=== PATIENT | female | born 1995 | race Caucasian/White ===

== ENCOUNTER → 2017-05-27 10:24 | Outpatient (CLI) | payer OTHER, SELFPAY ==
[2017-05-27 12:02] LABS: Internal QC Validated? YES +Cl - CLEAR BKGD; Pregnancy, Urine Negative Negative
== END ==
PROVIDERS: Family Provider Family Medicine; PCP Family Medicine; Visit Provider Nurse Practitioner Family
DX: L70.0 Acne vulgaris (principal); Z79.899 Other long term (current) drug therapy
CPT/HCPCS: 81025; 96361; 96372; 96374; 96375; 99218; G0378

== ENCOUNTER → 2017-06-29 10:46 | Outpatient (CLI) | payer OTHER, SELFPAY ==
[2017-06-29 12:22] LABS: Internal QC Validated? YES +Cl - CLEAR BKGD
[2017-06-29 12:23] LABS: Pregnancy, Urine Negative Negative
== END ==
PROVIDERS: Family Provider Family Medicine; PCP Family Medicine; Visit Provider Nurse Practitioner Family
DX: L70.0 Acne vulgaris (principal); Z79.899 Other long term (current) drug therapy
CPT/HCPCS: 81025

== ENCOUNTER → 2017-08-11 14:18 | Outpatient (CLI) | payer OTHER, SELFPAY ==
--- NOTE | 2017-08-11 14:18 | DT_ITS ---
This patient was seen during an EMR downtime August 10, 2017 - August 17, 2017. This patient may have a combination of paper and electronic documentation or all paper documentation. All documentation is viewable within the e-chart portion of [facility] for each patient visit.
[2017-08-17 17:15] LABS: Internal QC Validated? YES +Cl - CLEAR BKGD; Pregnancy, Urine Negative Negative
== END ==
PROVIDERS: Family Provider Family Medicine; PCP Family Medicine; Visit Provider Physician Assistant
DX: L70.0 Acne vulgaris (principal); Z79.899 Other long term (current) drug therapy
CPT/HCPCS: 81025

== ENCOUNTER → 2017-09-15 09:54 | Outpatient (CLI) | payer OTHER, SELFPAY ==
[2017-09-15 12:06] LABS: Internal QC Validated? YES +Cl - CLEAR BKGD; Pregnancy, Urine Negative Negative
== END ==
PROVIDERS: Family Provider Family Medicine; PCP Family Medicine; Visit Provider Physician Assistant
DX: L70.0 Acne vulgaris (principal); L65.0 Telogen effluvium; Z79.899 Other long term (current) drug therapy
CPT/HCPCS: 36415; 81025

== ENCOUNTER 2018-02-17 19:43 | Emergency (ER) | payer OTHER, SELFPAY ==
[2018-02-17 19:44] VITALS: BP 148/92; PULSE 127; RESP 18; TEMP 36.8; O2SAT 96; BMI 45.5
--- NOTE | 2018-02-17 20:59 | US_ITS ---
STUDY: ABDOMINAL ULTRASOUND - RIGHT UPPER QUADRANT REASON FOR VISIT: Female, 22 years old. Upper abdominal pain TECHNIQUE: Ultrasound evaluation of the right upper quadrant was performed with real-time and static martinez-scale imaging. TECHNICAL QUALITY: Adequate. COMPARISON: None. FINDINGS: Liver: The liver measures 18.1 cm. There is increased echogenicity consistent with fatty infiltration. The bile ducts are within normal limits. There is no demonstrated mass lesion. Gallbladder: Normal distended gallbladder. The gallbladder wall measures 2 mm. There is a negative sonographic Cummings's sign. There is no pericholecystic fluid. There are no gallstones. Common Bile Duct (C.B.D.): The common bile duct measures 3 mm. Pancreas: Normal size of the head, body and tail of the pancreas. There is normal echogenicity of the pancreas. There is no demonstrated pancreatic mass or cyst. Right Kidney: Normal size of the right kidney. The right kidney measures 12.0 x 6.3 x 6.6 cm. Normal renal cortex. The right cortex measures 1.9 cm. There is no demonstrated renal mass or cyst. There is no right hydronephrosis. US/Gallbladder IMPRESSION: Fatty liver. Otherwise, normal right upper quadrant ultrasound. Electronically Signed: Shanta Tirado MD at 22:18 EST , Service support ,
[2018-02-17] MEDS: 0.9% Normal Saline 1,000 ML 1000 ML IV (21:40)
[2018-02-17] MEDS: Ondansetron 4 MG/2 ML Vial IV (21:40)
[2018-02-17] MEDS: Ketorolac 30 MG/ML Syringe IV (21:40)
[2018-02-17 21:58] LABS: Absolute Lymphocyte Count 2.23 X10^3/ul (0.83-4.51); Absolute Neutrophil Count 6.9 X10^3/uL (2.0-7.7); Basophil# 0.01 X10^3/uL; Basophil% 0.1 % (0-1); Eosinophil# 0.01 X10^3/uL; Eosinophils% 0.1 % (0-5); Hematocrit 40.7 % (37-47); Hemoglobin 13.6 g/dl (12.0-15.0); Lymphocyte # 2.23 X10^3/ul (4.0); Lymphocyte % 22.5 % (19-41); Mean Corp Hgb Conc 33.4 g/gl (32-36); Mean Corpuscular Hgb 29.1 pg (27.0-32.0); Mean Corpuscular Volume 87.2 fL (81-99); Mean Platelet Vol. 9.4 fl (6.2-12.0); Monocyte# 0.73 X10^3/uL; Monocyte% 7.4 % (0-10); Neutrophil # 6.94 X10^3/uL (2.7-7.7); Neutrophil % 69.8 % (47-70); Platelet Count 304 K/mm3 (150-450); RBC Distribution Width CV 12.6 % (11.6-14.6); RBC Distribution Width SD 39.3 fl (35.1-43.9); Red Blood Count 4.67 M/mm3 (4.2-5.4); White Blood Count 9.9 K/mm3 (4.4-11.0)
[2018-02-17 21:59] LABS: POSITIVE COUNT NO; POSITIVE DIFFERENTIAL NO; POSITIVE MORPHOLOGY NO
[2018-02-17 22:18] LABS: ALB/GLOB Ratio 0.7 RATIO (0.9-2.4); AST(SGOT) 12 U/L (15-37); Alanine Aminotransfer ALT/SGPT 24 U/L (13-56); Albumin, Serum 3.2 g/dL (3.2-5.0); Alkaline Phosphatase 60 U/L (45-117); Anion Gap 10 (5-15); BUN 10 mg/dL (7-18); BUN/Creat Ratio 10.7 RATIO (10-20); Calcium,Total 9.6 mg/dL (8.5-10.1); Chloride 106 mmol/L (98-107); Creatinine, Serum 0.94 mg/dL (0.55-1.02); EST Glomerular Filtration Rate 78 mL/min (>60); Est Glom Filt Rate - Afr Amer 94 mL/min (>60); Estimated Creatinine Clearance 93.09 ml/min; Globulin 4.4 g/dL (2.2-4.2); Glucose 84 mg/dL (74-106); Lipase 55 U/L (73-393); Potassium 3.6 mmol/L (3.5-5.1); Protein, Total 7.6 g/dL (6.4-8.2); Sodium Level 142 mmol/L (136-145)
[2018-02-17 22:19] LABS: D-Dimer Quantitative (DVT/PE) 0.59 FEU/ug/m (0.27-0.49)
[2018-02-17 22:30] LABS: Pregnancy, Serum, hCG Quali. NEGATIVE Negative (0-9 Nonpreg)
--- NOTE | 2018-02-17 22:51 | CT_ITS ---
STUDY: CTA CHEST REASON FOR EXAM: Female, 22 years old. Upper abdominal pain and elevated d-dimer. RADIATION DOSAGE (If Supplied By Facility): CTDIvol = ( 12.01 ) mGy, DLP = ( 757.55 ) mGycm TECHNIQUE: The examination was performed with the intravenous administration of 100 ml of Isovue 370 contrast material. Post-processing of the angiographic images was performed, with multiplanar reformation and 3D reconstruction. Individualized dose optimization techniques were used for this CT. COMPARISON: None. FINDINGS: Normal enhancement of the main pulmonary artery and right and left pulmonary arteries. Normal enhancement of the bilateral peripheral pulmonary arteries. There is no demonstrated pulmonary embolism. Normal thoracic aorta and visualized great vessels. There is no demonstrated aortic dissection. Normal heart and pericardium. Normal mediastinum. Normal hilar regions. Normal visualized trachea and bronchi. The lungs are well expanded. Normal pulmonary parenchyma. Normal pleura. Normal chest wall structures. Normal osseous structures. Normal visualized upper abdomen. CT/CTA Chest W/WO Contrast IMPRESSION: Normal CTA chest examination, without a demonstrated pulmonary embolism or arterial dissection. Electronically Signed: Shanta Tirado MD at 23:36 EST , Service support ,
--- NOTE | 2018-02-17 23:52 | ED.DCSUM_ITS ---
- ER Visit Summary Date of Service: 02/17/18 Chief Complaint: Abdominal pain History of Present Illness: The patient is a [address] Bocanegra. She reports that she has epigastric abdominal pain began yesterday. It is a continuous waxing and waning pain. She describes it as sharp. 7 out of 10 worsened through 10 currently. Is worsened by pushing on it or deep breaths. Is relieved by nothing. She denies any nausea or vomiting. No diarrhea. Last bowel was today. No melena hematochezia. No dysuria frequency. She is on control pills. She does have a family history of gallstones. No personal family history of DVT. No recent travel. No ankle swelling or calf pain. No fatty or spicy food intolerance. Physical Examination: Vitals: 98.2, 148/92, 127, 18, 96% room air which is not hypoxic. General: Well-nourished and well-developed. Head: Normocephalic atraumatic. Neck: Supple, no lymphadenopathy. No JVD. Nontender. Cardiovascular: Regular rate and rhythm. No murmurs. Respiratory: No respiratory distress. Clear to auscultation bilaterally. Abdominal: Soft, moderate epigastric tenderness palpation. No Cummings sign. Nondistended, normal bowel sounds. No guarding, rebound, or peritoneal signs. Back: Nontender. Extremities: Nontender, no edema. Skin: Normal color, no rash. Neurologic: Alert and oriented ?3. Cranial nerves II through XII are intact. Normal strength and sensation. Psych: Normal affect. Test Results: CBC is normal. Chem-7 is normal. LFTs marked for globulin 4.4 and AST of 12. Lipase is normal. test is negative. D-dimer is positive. Quadrant ultrasound shows normal gallbladder with a 2 mm well. No Cummings sign. No pericholecystic fluid. No gallstones. Common bile duct is [address] the chest with IV contrast shows no PE or acute disease. Emergency Department Course and Treatment: Patient was treated Toradol and Zofran IV. She is resting comfortably. She was given Pepcid p.o. Treatment Plan: Patient be discharged on Pepcid. Instructed to follow-up her primary care physician 1 week if not improving. Return to the emergency department for any worsening symptoms. Disposition: To home in improved and stable condition. Impression: 1. Abdominal pain, uncertain cause. This note was generated with [employer] dictation software. It may contain incorrect words, spelling, and punctuation that were not noted in review of the chart prior to signing ED Disposition - Plan for ED Patient: Disposition: Home or Assisted Living Chief Complaint: Abd Pain Instructions: ED Abdominal Pain Unkn Cause Prescriptions: Ranitidine [Zantac] 300 mg PO DAILY #30 tablet Referrals: Dimitris Bocanegra [Primary Care Provider] - 3-5 Days if not improving
[2018-02-18] MEDS: Famotidine 20 MG Tablet 40 MG PO (00:13)
[2018-02-18 00:15] VITALS: RESP 18
--- OUTSIDE RECORDS SUMMARY | 2018-04-05 22:44 | XMS RPT_ITS ---
:1995 Author Organization OHIP Care Team Providers Name Role Phone Dimitris Samano Primary Care Unavailable Gerson Herrera Attending Unavailable Nayely Callejas LEAD SOFTWARE DEVELOPER-C Attending Unavailable Nayely Callejas LEAD SOFTWARE DEVELOPER-C Referring Unavailable Dimitris Samano Primary Care Unavailable Nayely Callejas LEAD SOFTWARE DEVELOPER-C Attending Unavailable Nayely Callejas LEAD SOFTWARE DEVELOPER-C Referring Unavailable Dimitris Samano Primary Care Unavailable Tanya Green Attending Unavailable Tanya Green Referring Unavailable Dimitris Samano Primary Care Unavailable Tanya Green Attending Unavailable Tanya Green Referring Unavailable Dimitris Samano Primary Care Unavailable BLAKE KERN Attending Unavailable ESCOBAR FRANCE Referring Unavailable DALJIT, DIMITRIS CADE Attending Unavailable TESTRAKE EVELIN Attending Unavailable DALJIT, DIMITRIS PROCTORS Attending Unavailable DALJIT, DIMITRIS HUMA Referring Unavailable DALJIT, DIMITRIS HUMA Referring Unavailable MONISurekha BLACKROSEANN MARRERO Attending Unavailable DALJIT, DIMITRIS CROWENABAS Attending Unavailable DALJIT, DIMITRIS PROCTORS Attending Unavailable DALJIT, BRODERICK Irby Attending Unavailable DALJIT, DIMITRIS HUMA Referring Unavailable BEKAHBENITA Referring Unavailable BekahBenita Referring Unavailable DALJIT, DIMITRIS Primary Care Unavailable PROBLEMS PROBLEMS DATE TYPE CONDITION / CODE ATTENDING STATUS SOURCE 02/23/2018 Active Epigastric pain / BRODERICK SAMANO Active [facility] R10.13(ICD-10) Main [place] Repository 12/16/2017 Active Attention-deficit DIMITRIS SAMANO Active [facility] hyperactivity HUMA Main [place] disorder, Repository predominantly inattentive type / F90.0(ICD-10) 09/15/2017 Unknown L70.0 - Acne GreenTanya Active [facility] L70.0(ICD-10) Hospital Repository 07/14/2017 Active Encounter for NA Active [facility] therapeutic drug [facility] level monitoring / Repository Z51.81(ICD-10) 07/07/2017 Active Unknown / TESTRAKE, Active [facility] UNK(Unknown) EVELIN [facility] Repository PROCEDURES PROCEDURES No Procedure Records FoundRESULTS RESULTS PROGRESS Observed: 02/23/2018 Status: COMPLETED Source: [place] 9:03 AM [facility] RE[facility] HNO ID: [id number] Author: Broderick Samano Service: (none) Author Type: Physician Type: Progress Notes Filed: 02/23/2018 9:12 AM Note Text: This note was created using NoteWriter. Subjective Tata Sage is a 22 year old female. The history is provided by the patient. Abdominal Pain This is a new problem. The current episode started more than 1 week ago. The problem occurs every several days. The pain is located in the epigastric region. The quality of the pain is sharp. The pain is at a severity of 3/10. The pain is moderate. Associated symptoms include nausea. Associated symptoms comments: Resolved, epigastric pain, has h/o naproxen use. The symptoms are aggravated by NSAIDs. The symptoms are relieved by H2 blockers. taking zantac daily, much better. Review of Systems Constitutional: Negative. HENT: Negative. Gastrointestinal: Positive for abdominal pain and nausea. Objective BP 126/82 Pulse 80 Temp 36.7 ?C (98.1 ?F) (Tympanic) Ht 172.7 cm (5' 8) Wt 135.6 kg (299 lb) BMI 45.46 kg/m? Physical Exam Constitutional: She appears well-developed and well-nourished. HENT: Head: Normocephalic and atraumatic. Cardiovascular: Normal rate and regular rhythm. Pulmonary/Chest: Effort normal and breath sounds normal. Abdominal: There is tenderness in the epigastric area. Skin: Skin is warm and dry. Nursing note and vitals reviewed. Assessment and Plan ASSESSMENT/PLAN: 1. Epigastric abdominal pain - ICD9: 789.06, ICD10: R10.13 - Begin treatment with Zantac 150 mg BID - Reassured, resolving Broderick Samano MD CNOV Observed: 02/23/2018 Status: COMPLETED Source: [place] 9:00 AM [facility] REPOSITORY Office Visit (STFLF) TATA SAGE ([id number]) 1995 F Date Time Provider Department 02/23/18 9:00 AM BRODERICK SAMANO STFLF During your visit today, we recorded the following information about you: Temperature Pulse Blood pressure Weight 98.1 degrees 80/minute 126/82 135.6 kg Height 1.727 m Broderick Samano MD 02/23/2018 9:12 AM Signed This note was created using NoteWriter. Subjective Tata Sage is a 22 year old female. The history is provided by the patient. Abdominal Pain This is a new problem. The current episode started more than 1 week ago. The problem occurs every several days. The pain is located in the epigastric region. The quality of the pain is sharp. The pain is at a severity of 3/10. The pain is moderate. Associated symptoms include nausea. Associated symptoms comments: Resolved, epigastric pain, has h/o naproxen use. The symptoms are aggravated by NSAIDs. The symptoms are relieved by H2 blockers. taking zantac daily, much better. Review of Systems Constitutional: Negative. HENT: Negative. Gastrointestinal: Positive for abdominal pain and nausea. Objective BP 126/82 Pulse 80 Temp 36.7 ?C (98.1 ?F) (Tympanic) Ht 172.7 cm (5' 8) Wt 135.6 kg (299 lb) BMI 45.46 kg/m? Physical Exam Constitutional: She appears well-developed and well-nourished. HENT: Head: Normocephalic and atraumatic. Cardiovascular: Normal rate and regular rhythm. Pulmonary/Chest: Effort normal and breath sounds normal. Abdominal: There is tenderness in the epigastric area. Skin: Skin is warm and dry. Nursing note and vitals reviewed. Assessment and Plan ASSESSMENT/PLAN: 1. Epigastric abdominal pain - ICD9: 789.06, ICD10: R10.13 - Begin treatment with Zantac 150 mg BID - Reassured, resolving Broderick Samano MD Referring Provider: DIMITRIS SAMANO [[id number]] Allergies As of Date: 02/23/2018 Noted Allergy Reaction Artesia flies [Other] 08/24/2007 7 - Swelling DUST 04/30/2005 Comments: Sneezing and stuffy nose MOSQUITOS 09/07/2007 7 - Swelling POLLEN 04/30/2005 Comments: Sneezing and stuffy nose Date Reviewed: 02/23/2018 Reviewed by: Broderick Samano - Fully Assessed Reason for Visit: Abdominal Pain [1] Cmt: er follow up [place] Primary Visit Diagnosis:Epigastric abdominal pain [R10.13] Prescriptions as of 02/23/2018 Sig: ARIPIPRAZOLE 5 MG TABLET Take 1 tablet by mouth once d* ATOMOXETINE 40 MG CAPSULE Take 1 capsule by mouth once * ATOMOXETINE 80 MG CAPSULE Take 1 capsule by mouth once * BUPROPION XL 150 MG TAB Take 1 tablet by mouth once d* DOXYCYCLINE MONOHYDRATE 100 M* Take 1 capsule by mouth. DROSPIRENONE 3 MG-ETHINYL EST* Take 1 tablet by mouth once d* HYDROXYZINE HCL 25 MG TABLET Take 1 tablet by mouth daily * MULTIVITAMIN CHEWABLE TABLET Take one(1) tablet daily. NALTREXONE 50 MG TABLET Take 1 tablet by mouth once d* POLYETHYLENE GLYCOL 3350 17 G* Take 17 g by mouth once daily. AFLURIA QUAD 2937-2519 (PF) 6* BUPROPION XL 300 MG 24 HR TAB Take 300 mg by mouth once saroj* CLARAVIS 40 MG CAPSULE TAKE 2 CAPSULES BY MOUTH EDILBERTO* FLORAJEN3 ORAL Take by mouth once daily. NAPROXEN ORAL Take by mouth. SPIRONOLACTONE 50 MG TABLET Take 50 mg by mouth once edilberto* Problem List As Of Date 02/23/2018 Noted Resolved Ingrowing nail [L60.0] INVALID FOR*07/23/2011 Cellulitis and abscess of toe, unspecified [L03*INVALID FOR*07/23/2011 Acne [L70.9] INVALID FOR* Obesity, Class III, BMI >= 40 E66.01 [E66.01] INVALID FOR* Bipolar 1 disorder (HCC) [F31.9] INVALID FOR* Body mass index (BMI) 45.0-49.9, adult (HCC) [Z*INVALID FOR* Moderate episode of recurrent major depressive *INVALID FOR* Medications Discontinued During This Encounter LANSOPRAZOLE (PREVACID ORAL) 02/23/2018 Class: Historical Med Route: ORAL Sig: Take by mouth. Disc: Course of therapy completed Disposition: Return if symptoms worsen or fail to improve. Follow-up and Disposition History Recorded Encounter Status:Closed by BRODERICK SAMANO MD on 02/23/18 EMERGENCY DEPARTMENT Observed: 02/18/2018 Status: F Source: [place] SUMMARY 1:04 AM [facility] REPOSITORY [facility] Medical Records Department [address] [place] [address] Emergency Department Summary 02/17/18 2351 MR#: [id number] Acct: [id number] Name: TATA SAGE Rep #: [id number] : 1995 22 From: Gerson Herrera MD PCP: Dimitris Samano Status: DEP ER - ER Visit Summary Date of Service: 02/17/18 Chief Complaint: Abdominal pain History of Present Illness: The patient is a [address] Samano. She reports that she has epigastric abdominal pain began yesterday. It is a continuous waxing and waning pain. She describes it as sharp. 7 out of 10 worsened through 10 currently. Is worsened by pushing on it or deep breaths. Is relieved by nothing. She denies any nausea or vomiting. No diarrhea. Last bowel was today. No melena hematochezia. No dysuria frequency. She is on control pills. She does have a family history of gallstones. No personal family history of DVT. No recent travel. No ankle swelling or calf pain. No fatty or spicy food intolerance. Physical Examination: Vitals: 98.2, 148/92, 127, 18, 96% room air which is not hypoxic. General: Well-nourished and well-developed. Head: Normocephalic atraumatic. Neck: Supple, no lymphadenopathy. No JVD. Nontender. Cardiovascular: Regular rate and rhythm. No murmurs. Respiratory: No respiratory distress. Clear to auscultation bilaterally. Abdominal: Soft, moderate epigastric tenderness palpation. No Cummings sign. Nondistended, normal bowel sounds. No guarding, rebound, or peritoneal signs. Back: Nontender. Extremities: Nontender, no edema. Skin: Normal color, no rash. Neurologic: Alert and oriented 3. Cranial nerves II through XII are intact. Normal strength and sensation. Psych: Normal affect. Test Results: CBC is normal. Chem-7 is normal. LFTs marked for globulin 4.4 and AST of 12. Lipase is normal. test is negative. D-dimer is positive. Quadrant ultrasound shows normal gallbladder with a 2 mm well. No Cummings sign. No pericholecystic fluid. No gallstones. Common bile duct is [address] the chest with IV contrast shows no PE or acute disease. Emergency Department Course and Treatment: Patient was treated Toradol and Zofran IV. She is resting comfortably. She was given Pepcid p.o. Treatment Plan: Patient be discharged on Pepcid. Instructed to follow-up her primary care physician 1 week if not improving. Return to the emergency department for any worsening symptoms. Disposition: To home in improved and stable condition. Impression: 1. Abdominal pain, uncertain cause. This note was generated with Kickstarteration software. It may contain incorrect words, spelling, and punctuation that were not noted in review of the chart prior to signing ED Disposition - Plan for ED Patient: Disposition: Home or Assisted Living Chief Complaint: Abd Pain Instructions: ED Abdominal Pain Unkn Cause Prescriptions: Ranitidine [Zantac] 300 mg PO DAILY #30 tablet Referrals: Dimitris Samano [Primary Care Provider] - 3-5 Days if not improving What to do if you have Problems For any increased pain, shortness of breath, bleeding, nausea or vomiting, chest pain, or any unexpected problems, contact your Primary Care Provider. Call [facility] ([phone]) or report to the closest Emergency Room. Call 911 if necessary. 02/18/18 0104 <Electronically signed by Gerson Herrera MD> Date Gerson Herrera MD Cosigner Signature (If Indicated): Date CC: Dimitris Samano CTA CHEST W/WO Observed: 02/17/2018 Status: F Source: [place] CONTRAST 10:51 PM [facility] REPOSITORY [facility] Imaging Services [address] [place] [id number] CTA Chest W/WO Contrast MR#: [id number] Acct: [id number] Name: TATA SAGE Rep #: [id number] : 1995 F 22 From: Shanta Tirado MD PCP: Dimitris Samano Status: REG ER Study: CTA Chest W/WO Contrast Date of Exam: 02/17/18 Exam# [id number] Ordering Dr: Gerson Herrera MD STUDY: CTA CHEST REASON FOR EXAM: Female, 22 years old. Upper abdominal pain and elevated d-dimer. RADIATION DOSAGE (If Supplied By Facility): CTDIvol = ( 12.01 ) mGy, DLP = ( 757.55 ) mGycm TECHNIQUE: The examination was performed with the intravenous administration of 100 ml of Isovue 370 contrast material. Post-processing of the angiographic images was performed, with multiplanar reformation and 3D reconstruction. Individualized dose optimization techniques were used for this CT. COMPARISON: None. FINDINGS: Normal enhancement of the main pulmonary artery and right and left pulmonary arteries. Normal enhancement of the bilateral peripheral pulmonary arteries. There is no demonstrated pulmonary embolism. Normal thoracic aorta and visualized great vessels. There is no demonstrated aortic dissection. Normal heart and pericardium. Normal mediastinum. Normal hilar regions. Normal visualized trachea and bronchi. The lungs are well expanded. Normal pulmonary parenchyma. Normal pleura. Normal chest wall structures. Normal osseous structures. Normal visualized upper abdomen. CT/CTA Chest W/WO Contrast IMPRESSION: Normal CTA chest examination, without a demonstrated pulmonary embolism or arterial dissection. Electronically Signed: Shanta Tirado MD at 23:36 EST , Service support , CC: Dimitris Samano; Gerson Herrera MD Manager Personnel Selection: Signed CBC W/DIFF, AUTOMATED Collected: 02/17/2018 Status: F Source: [place] 9:43 PM [facility] REPOSITORY TYPE CODE TESTS RESULT OUT OF RANGE REFERENCE UNITS LAB L100.1000 4.4-11.0 K/mm3 Normal WBC 9.9 LAB L100.1200 4.2-5.4 M/mm3 Normal RBC 4.67 LAB L100.1300 12.0-15.0 g/dl Normal HGB 13.6 LAB L100.1400 37-47 % Normal HCT 40.7 LAB L100.1500 81-99 fL Normal MCV 87.2 LAB L100.1600 27.0-32.0 pg Normal MCH 29.1 LAB L100.1700 32-36 g/gl Normal MCHC 33.4 LAB L100.1810 11.6-14.6 % Normal RDW CV 12.6 LAB L100.1820 35.1-43.9 fl Normal RDW SD 39.3 LAB L100.1900 150-450 K/mm3 Normal PLT 304 LAB L100.2000 6.2-12.0 fl Normal MPV 9.4 LAB L100.2100 47-70 % Normal NEUT% 69.8 LAB L100.2200 19-41 % Normal LY% 22.5 LAB L100.2300 0-10 % Normal MONO% 7.4 LAB L100.2400 0-5 % Normal EO% 0.1 LAB L100.2500 0-1 % Normal BASO% 0.1 LAB L100.2550 0.0-0.9 % Normal IM GRAN % 0.100 Result Comment: IG% - Immature Granulocytes (promyelocytes, myelocytes and metamyelocytes) > 1% indicates that a LEFT SHIFT is Present. LAB L100.2620 2.0-7.7 X10 3/uL Normal Absolute Neut 6.9 LAB L100.2720 0.83-4.51 X10 3/ul Normal Absolute Lymph 2.23 Performed By: #### L100.0100 #### [facility] [address] [place], [address] COMPREHENSIVE METABOLIC Collected: 02/17/2018 Status: F Source: [facility] 9:43 PM [facility] REPOSITORY TYPE CODE TESTS RESULT OUT OF RANGE REFERENCE UNITS LAB L501.0100 74-106 mg/dL Normal GLU 84 Result Comment: Please note revised GLUCOSE reference range effective 2017. LAB L501.1000 7-18 mg/dL Normal BUN 10 LAB L501.1100 0.55-1.02 mg/dL Normal CREAT,SERUM 0.94 Result Comment: The validity of the calculated GFR AND GFRAA in patients over 70 years has not been determined. Clinical correlation is essential. LAB L501.1110 >60 mL/min Normal EST GFR 78 Result Comment: Non- GFR Calc LAB L501.1115 >60 mL/min Normal EST GFR - AA 94 Result Comment: GFR Calc LAB L501.1255 ml/min Normal Estimated CRCL 93.09 LAB L501.1300 10-20 RATIO Normal BUN/CRE 10.7 LAB L501.1500 6.4-8. g/dL Normal 2 T PROT 7.6 LAB L501.1800 3.2-5. g/dL Normal 0 ALB 3.2 LAB L501.1950 2.2-4. g/dL High 2 GLOB 4.4 LAB L501.2000 0.9-2. RATIO Low 4 A/G 0.7 LAB L501.2200 8.5-10 mg/dL Normal .1 CA 9.6 LAB L501.4100 15-37 U/L Low AST 12 LAB L501.4305 45-117 U/L Normal ALK P 60 LAB L501.4405 13-56 U/L Normal ALT 24 LAB L501.4600 0.20-1 mg/dL Normal .00 T BILI 0.50 LAB L501.5300 136-14 mmol/L Normal 5 NA 142 LAB L501.5600 3.5-5. mmol/L Normal 1 K 3.6 LAB L501.5900 98-107 mmol/L Normal CL 106 LAB L501.6100 21.0-3 mmol/L Normal 2.0 CO2 26.0 LAB L501.6200 5-15 Normal GAP 10 Performed By: #### L500.4050, L501.2450 #### [facility] [address], [place], [id number] LIPASE Collected: 02/17/2018 Status: F Source: [place] 9:43 PM [facility] REPOSITORY TYPE CODE TESTS RESULT OUT OF REFERENCE UNITS RANGE LAB L501.2450 73-393 U/L Low LIPASE 55 Performed By: #### L500.4050, L501.2450 #### [facility] [address] [place], [address] D-DIMER QUANTITATIVE Collected: 02/17/2018 Status: F Source: [place] (DVT/PE) 9:43 PM [facility] REPOSITORY TYPE CODE TESTS RESULT OUT OF RANGE REFERENCE UNITS LAB L300.8000 0.27-0.49 FEU/ug/m High alert D-DIMER 0.59 QUANT Result Comment: D-Dimer ELEVATED (>0.49): Additional studies and clinical assessments are indicated to conclude diagnosis of: Deep Vein Thrombosis (DVT) or Pulmonary Embolism (PE) CRITICAL VALUE VERIFIED. CALLED TO CRAIG 02/17/18 2348 Saritha Garcia. RESULTS READ BACK BY SAME . Performed By: #### L300.8000 #### [facility] [address] [place], [address] ,SERUM,HCG QUALI. Collected: Status: F Source: [place] 02/17/2018 9:43 PM [facility] REPOSITORY TYPE CODE TESTS RESULT OUT OF REFERENCE UNITS RANGE LAB L700.6700 =>Qualitative mIU/mL Normal HCG Qual < 1 triggr LAB L700.7000 0-9 Nonpreg Negative Normal HCGSQUAL NEGATIVE Performed By: #### L700.6800 #### [facility] [address] [place], [address] GALLBLADDER Observed: 02/17/2018 Status: F Source: [place] 9:00 PM [facility] REPOSITORY [facility] Imaging Services [address] [place] [address] Gallbladder MR#: [id number] Acct: [id number] Name: TATA SAGE Rep #: [id number] : 1995 F 22 From: Shanta Tirado MD PCP: Dimitris Samano Status: REG ER Study: Gallbladder Date of Exam: 02/17/18 Exam# [id number] Ordering Dr: Gerson Herrera MD STUDY: ABDOMINAL ULTRASOUND - RIGHT UPPER QUADRANT REASON FOR VISIT: Female, 22 years old. Upper abdominal pain TECHNIQUE: Ultrasound evaluation of the right upper quadrant was performed with real-time and static martinez-scale imaging. TECHNICAL QUALITY: Adequate. COMPARISON: None. FINDINGS: Liver: The liver measures 18.1 cm. There is increased echogenicity consistent with fatty infiltration. The bile ducts are within normal limits. There is no demonstrated mass lesion. Gallbladder: Normal distended gallbladder. The gallbladder wall measures 2 mm. There is a negative sonographic Cummings's sign. There is no pericholecystic fluid. There are no gallstones. Common Bile Duct (C.B.D.): The common bile duct measures 3 mm. Pancreas: Normal size of the head, body and tail of the pancreas. There is normal echogenicity of the pancreas. There is no demonstrated pancreatic mass or cyst. Right Kidney: Normal size of the right kidney. The right kidney measures 12.0 x 6.3 x 6.6 cm. Normal renal cortex. The right cortex measures 1.9 cm. There is no demonstrated renal mass or cyst. There is no right hydronephrosis. US/Gallbladder IMPRESSION: Fatty liver. Otherwise, normal right upper quadrant ultrasound. Electronically Signed: Shanta Tirado MD at 22:18 EST , Service support , CC: Dimitris Samano; Gerson Herrera MD Manager Personnel Selection: Signed PROGRESS Observed: 12/16/2017 Status: COMPLETED Source: [place] 9:00 AM [facility] REPOSITORY O ID: [id number] Author: Dimitris Samano Service: (none) Author Type: Physician Type: Progress Notes Filed: 12/16/2017 9:03 AM Note Text: Tata Sage is a 22 year old female known to our practice. Patient presents with: Behavioral Problem: patient states she is here to follow up from starting [place]. Pt is doing well on medication, able to focus, able to read and study. Denies any side effects. Past Medical, Surgical, Family and Social Histories reviewed and updated today in the History tab of [facility]. Current Medications and allergies reviewed. ACTIVE PROBLEM LIST Acne Obesity, Class III, BMI >= 40 E66.01 Bipolar 1 Disorder (Hcc) Body Mass Index (Bmi) 45.0-49.9, Adult (Hcc) Moderate Episode of Recurrent Major Depressive Disorder (Hcc) ALLERGIES: Artesia Flies [Other]; Dust; Mosquitos; Pollen Current Outpatient Prescriptions: buPROPion XL (WELLBUTRIN XL) 150 mg 24 hr tablet Take 1 tablet by mouth once daily. hydrOXYzine HCl (ATARAX) 25 mg tablet Take 1 tablet by mouth daily at bedtime. naltrexone (TREXAN) 50 mg tablet Take 1 tablet by mouth once daily. ARIPiprazole (ABILIFY) 5 mg tablet Take 1 tablet by mouth once daily. atomoxetine (STRATTERA) 40 mg capsule Take 1 capsule by mouth once daily. 1 po qd X 3 days then 2 po qd Drospirenone-Ethinyl Estradiol (NISREEN, 28,) 3-0.02 mg per tablet Take 1 tablet by mouth once daily. L ACIDOPHIL/B LACTIS/B LONGUM (FLORAJEN3 ORAL) Take by mouth once daily. polyethylene glycol 3350 (MIRALAX, GLYCOLAX) 17 gram/dose powder Take 17 g by mouth once daily. LANSOPRAZOLE (PREVACID ORAL) Take by mouth. MULTIVITAMINS CHEWABLE TAB Take one(1) tablet daily. doxycycline monohydrate (MONODOX) 100 mg capsule Take 1 capsule by mouth. spironolactone (ALDACTONE) 50 mg tablet Take 50 mg by mouth once daily. CLARAVIS 40 mg capsule TAKE 2 CAPSULES BY MOUTH DAILY with a fatty meal AFLURIA QUAD [id number], PF, 60 mcg/0.5 mL syrg NAPROXEN ORAL Take by mouth. buPROPion XL (WELLBUTRIN XL) 300 mg 24 hr tablet Take 300 mg by mouth once daily. No current facility-administered medications for this visit. REVIEW OF SYSTEMS GENERAL: No weight loss, malaise or fevers RESPIRATORY: Negative for cough, hemoptysis, wheezing, COPD, dyspnea or shortness of breath CARDIOVASCULAR: Negative for chest pain, leg swelling, hypertension, CHF or palpitations GI: No nausea, vomiting, or diarrhea PHYSICAL EXAMINATION: BP 118/94 Pulse 92 Temp 36.5 ?C (97.7 ?F) Ht 172.7 cm (5' 8) Wt 133.4 kg (294 lb) BMI 44.70 kg/m? PHYSICAL EXAMINATION: General appearance: Well appearing, alert, in no acute distress, well-hydrated, well nourished. Lungs: Lungs clear to auscultation. No wheezing, rhonchi, rales Heart: RRR without murmur, gallop, or rubs. No ectopy Extremities: No deformities, edema, skin discoloration, clubbing or cyanosis. Good capillary refill. Abdomen: Normal abdominal exam, Abdomen soft, non-tender. Bowel sounds normal. No masses, organomegaly Neuro: Gait normal. Reflexes normal and symmetric. Sensation grossly intact. Psychiatric: Patien has a normal mood and affect. Patient's speech is normal and behavior is normal. Judgment and thought content normal. Patient is not actively hallucinating. Cognition and memory are normal. Patient expresses no homicidal and no suicidal ideation. ASSESSMENT/PLAN: 1. Attention deficit hyperactivity disorder (ADHD), predominantly inattentive type - ICD9: 314.00, ICD10: F90.0 [facility] Dimitris Samano MD CNOV Observed: 12/16/2017 Status: COMPLETED Source: [place] 9:00 AM [facility] REPOSITORY Office Visit (STFLF) TEREZATATA Underwood ([id number]) 1995 F Date Time Provider Department 12/16/17 9:00 AM DIMITRIS SAMANO STFLF During your visit today, we recorded the following information about you: Temperature Pulse Blood pressure Weight 97.7 degrees 92/minute 118/94 133.4 kg Height 1.727 m Dimitris Samano MD 12/16/2017 9:03 AM Signed Tata Underwood Carmen is a 22 year old female known to our practice. Patient presents with: Behavioral Problem: patient states she is here to follow up from starting [facility]. Pt is doing well on medication, able to focus, able to read and study. Denies any side effects. Past Medical, Surgical, Family and Social Histories reviewed and updated today in the History tab of [facility]. Current Medications and allergies reviewed. ACTIVE PROBLEM LIST Acne Obesity, Class III, BMI >= 40 E66.01 Bipolar 1 Disorder (Hcc) Body Mass Index (Bmi) 45.0-49.9, Adult (Hcc) Moderate Episode of Recurrent Major Depressive Disorder (Hcc) ALLERGIES: Artesia Flies [Other]; Dust; Mosquitos; Pollen Current Outpatient Prescriptions: buPROPion XL (WELLBUTRIN XL) 150 mg 24 hr tablet Take 1 tablet by mouth once daily. hydrOXYzine HCl (ATARAX) 25 mg tablet Take 1 tablet by mouth daily at bedtime. naltrexone (TREXAN) 50 mg tablet Take 1 tablet by mouth once daily. ARIPiprazole (ABILIFY) 5 mg tablet Take 1 tablet by mouth once daily. atomoxetine (STRATTERA) 40 mg capsule Take 1 capsule by mouth once daily. 1 po qd X 3 days then 2 po qd Drospirenone-Ethinyl Estradiol (NISREEN, 28,) 3-0.02 mg per tablet Take 1 tablet by mouth once daily. L ACIDOPHIL/B LACTIS/B LONGUM (FLORAJEN3 ORAL) Take by mouth once daily. polyethylene glycol 3350 (MIRALAX, GLYCOLAX) 17 gram/dose powder Take 17 g by mouth once daily. LANSOPRAZOLE (PREVACID ORAL) Take by mouth. MULTIVITAMINS CHEWABLE TAB Take one(1) tablet daily. doxycycline monohydrate (MONODOX) 100 mg capsule Take 1 capsule by mouth. spironolactone (ALDACTONE) 50 mg tablet Take 50 mg by mouth once daily. CLARAVIS 40 mg capsule TAKE 2 CAPSULES BY MOUTH DAILY with a fatty meal AFLURIA QUAD [id number], PF, 60 mcg/0.5 mL syrg NAPROXEN ORAL Take by mouth. buPROPion XL (WELLBUTRIN XL) 300 mg 24 hr tablet Take 300 mg by mouth once daily. No current facility-administered medications for this visit. REVIEW OF SYSTEMS GENERAL: No weight loss, malaise or fevers RESPIRATORY: Negative for cough, hemoptysis, wheezing, COPD, dyspnea or shortness of breath CARDIOVASCULAR: Negative for chest pain, leg swelling, hypertension, CHF or palpitations GI: No nausea, vomiting, or diarrhea PHYSICAL EXAMINATION: BP 118/94 Pulse 92 Temp 36.5 ?C (97.7 ?F) Ht 172.7 cm (5' 8) Wt 133.4 kg (294 lb) BMI 44.70 kg/m? PHYSICAL EXAMINATION: General appearance: Well appearing, alert, in no acute distress, well-hydrated, well nourished. Lungs: Lungs clear to auscultation. No wheezing, rhonchi, rales Heart: RRR without murmur, gallop, or rubs. No ectopy Extremities: No deformities, edema, skin discoloration, clubbing or cyanosis. Good capillary refill. Abdomen: Normal abdominal exam, Abdomen soft, non-tender. Bowel sounds normal. No masses, organomegaly Neuro: Gait normal. Reflexes normal and symmetric. Sensation grossly intact. Psychiatric: Patien has a normal mood and affect. Patient's speech is normal and behavior is normal. Judgment and thought content normal. Patient is not actively hallucinating. Cognition and memory are normal. Patient expresses no homicidal and no suicidal ideation. ASSESSMENT/PLAN: 1. Attention deficit hyperactivity disorder (ADHD), predominantly inattentive type - ICD9: 314.00, ICD10: F90.0 Cont meds Dimitris Samano MD Referring Provider: SELF [200] Allergies As of Date: 12/16/2017 Noted Allergy Reaction Artesia flies [Other] 08/24/2007 7 - Swelling DUST 04/30/2005 Comments: Sneezing and stuffy nose MOSQUITOS 09/07/2007 7 - Swelling POLLEN 04/30/2005 Comments: Sneezing and stuffy nose Date Reviewed: 12/16/2017 Reviewed by: Dimitris Samano - Fully Assessed Reason for Visit: Behavioral Problem [13] Cmt: patient states she is here to follow up from starting Strattera. Primary Visit Diagnosis:Attention deficit hyperactivity disorder (ADHD), predominantly inattentive type [F90.0] Order(s):Atomoxetine (STRATTERA) 80 mg capsuleTake 1 capsule by mouth once daily.Disp: 30 capsuleRfl: 5 Prescriptions as of 12/16/2017 Sig: BUPROPION XL 150 MG TAB Take 1 tablet by mouth once d* HYDROXYZINE HCL 25 MG TABLET Take 1 tablet by mouth daily * NALTREXONE 50 MG TABLET Take 1 tablet by mouth once d* ARIPIPRAZOLE 5 MG TABLET Take 1 tablet by mouth once d* ATOMOXETINE 40 MG CAPSULE Take 1 capsule by mouth once * DROSPIRENONE 3 MG-ETHINYL EST* Take 1 tablet by mouth once d* FLORAJEN3 ORAL Take by mouth once daily. POLYETHYLENE GLYCOL 3350 17 G* Take 17 g by mouth once daily. PREVACID ORAL Take by mouth. MULTIVITAMIN CHEWABLE TABLET Take one(1) tablet daily. DOXYCYCLINE MONOHYDRATE 100 M* Take 1 capsule by mouth. SPIRONOLACTONE 50 MG TABLET Take 50 mg by mouth once edilberto* ATOMOXETINE 80 MG CAPSULE Take 1 capsule by mouth once * CLARAVIS 40 MG CAPSULE TAKE 2 CAPSULES BY MOUTH EDILBERTO* AFLURIA QUAD [id number] (PF) 6* NAPROXEN ORAL Take by mouth. BUPROPION XL 300 MG 24 HR TAB Take 300 mg by mouth once saroj* Problem List As Of Date 12/16/2017 Noted Resolved Ingrowing nail [L60.0] INVALID FOR*07/23/2011 Cellulitis and abscess of toe, unspecified [L03*INVALID FOR*07/23/2011 Acne [L70.9] INVALID FOR* Obesity, Class III, BMI >= 40 E66.01 [E66.01] INVALID FOR* Bipolar 1 disorder (HCC) [F31.9] INVALID FOR* Body mass index (BMI) 45.0-49.9, adult (HCC) [Z*INVALID FOR* Moderate episode of recurrent major depressive *INVALID FOR* Prescriptions ordered this encounter Disp Refills Start End ATOMOXETINE 80 MG CAPSULE 30 c* 5 12/16/2017 06/14/2018 Route: ORAL Sig: Take 1 capsule by mouth once daily. Encounter Status:Closed by DIMITRIS SAMANO MD on 12/16/17 [facility] Observed: 11/13/2017 Status: COMPLETED Source: [place] 12:00 AM [facility] REPOSITORY Telephone (STFLF) TATA SAGE ([id number]) 1995 F Date Time Provider Department 11/13/17 DIMITRIS SAMANO [facility] During your visit today, we recorded the following information about you: Tosin APONTE 11/13/2017 8:08 AM Signed Looks like to Joie did not go through to the pharmacy can we resend this for the patient please advise. Dimitris Samano MD 11/13/2017 8:33 AM Signed Working on PA now, message went through epic Tosin Wheatley 11/13/2017 11:10 AM Signed 11/13 [facility] [place] Shruti Quiñones Ma 11/23/2017 11:21 AM Signed Prior authorization approved for joie. Pharmacy contacted. Allergies As of Date: 11/13/2017 Noted Allergy Reaction Artesia flies [Other] 08/24/2007 7 - Swelling DUST 04/30/2005 Comments: Sneezing and stuffy nose MOSQUITOS 09/07/2007 7 - Swelling POLLEN 04/30/2005 Comments: Sneezing and stuffy nose Date Reviewed: 11/12/2017 Reviewed by: Dimitris Samano - Fully Assessed Reason for Visit: Medication Problem [509] Prescriptions as of 11/13/2017 Sig: LORAZEPAM 1 MG TABLET Take 1 tablet by mouth every * BUPROPION XL 150 MG TAB Take 1 tablet by mouth once d* HYDROXYZINE HCL 25 MG TABLET Take 1 tablet by mouth daily * NALTREXONE 50 MG TABLET Take 1 tablet by mouth once d* ARIPIPRAZOLE 5 MG TABLET Take 1 tablet by mouth once d* ATOMOXETINE 40 MG CAPSULE Take 1 capsule by mouth once * CLARAVIS 40 MG CAPSULE TAKE 2 CAPSULES BY MOUTH EDILBERTO* DROSPIRENONE 3 MG-ETHINYL EST* Take 1 tablet by mouth once d* AFLURIA QUAD [id number] (PF) 6* FLORAJEN3 ORAL Take by mouth once daily. POLYETHYLENE GLYCOL 3350 17 G* Take 17 g by mouth once daily. NAPROXEN ORAL Take by mouth. PREVACID ORAL Take by mouth. BUPROPION XL 300 MG 24 HR TAB Take 300 mg by mouth once saroj* MULTIVITAMIN CHEWABLE TABLET Take one(1) tablet daily. Problem List As Of Date 11/13/2017 Noted Resolved Ingrowing nail [L60.0] INVALID FOR*07/23/2011 Cellulitis and abscess of toe, unspecified [L03*INVALID FOR*07/23/2011 Acne [L70.9] INVALID FOR* Obesity, Class III, BMI >= 40 E66.01 [E66.01] INVALID FOR* Bipolar 1 disorder (HCC) [F31.9] INVALID FOR* Body mass index (BMI) 45.0-49.9, adult (HCC) [Z*INVALID FOR* Moderate episode of recurrent major depressive *INVALID FOR* Encounter Status:Closed by TOSIN WHEATLEY on 11/13/17 [facility] Observed: 11/12/2017 Status: COMPLETED Source: [place] 4:00 PM [facility] REPOSITORY Office Visit (STFLF) TATA SAGE ([id number]) 1995 F Date Time Provider Department 11/12/17 4:00 PM DIMITRIS SAMANO [facility] During your visit today, we recorded the following information about you: Temperature Pulse Blood pressure Weight 98.7 degrees 101/minute 103/69 135.1 kg Height 1.727 m Dimitris Samano MD 11/13/2017 8:20 AM Addendum Tata Sage is a 22 year old female known to our practice. Patient presents with: Bipolar Disorder weight management Anxiety trouble focusing bipolar disorder: Doing well on medications, no side effects, no new symptoms, needs refills. Patient has a hard time focusing at College. She has a hard time focusing and retaining information after reading things. Pt had trouble as a child, teachers were noticing but her mom was not doing anything about it. HEAVENLY: Doing well on medications, no side effects, no new symptoms, needs refills. Past Medical, Surgical, Family and Social Histories reviewed and updated today in the History tab of [employer]. Current Medications and allergies reviewed. ACTIVE PROBLEM LIST Acne Obesity, Class III, BMI >= 40 E66.01 Bipolar 1 Disorder (Hcc) Body Mass Index (Bmi) 45.0-49.9, Adult (Hcc) Moderate Episode of Recurrent Major Depressive Disorder (Hcc) ALLERGIES: Artesia Flies [Other]; Dust; Mosquitos; Pollen Current Outpatient Prescriptions: LORazepam (ATIVAN) 1 mg tablet ARIPiprazole (ABILIFY) 5 mg tablet Take 1 tablet by mouth once daily. buPROPion XL (WELLBUTRIN XL) 150 mg 24 hr tablet Take 1 tablet by mouth once daily. Drospirenone-Ethinyl Estradiol (NISREEN, 28,) 3-0.02 mg per tablet Take 1 tablet by mouth once daily. hydrOXYzine HCl (ATARAX) 25 mg tablet L ACIDOPHIL/B LACTIS/B LONGUM (FLORAJEN3 ORAL) Take by mouth once daily. polyethylene glycol 3350 (MIRALAX, GLYCOLAX) 17 gram/dose powder Take 17 g by mouth once daily. NAPROXEN ORAL Take by mouth. LANSOPRAZOLE (PREVACID ORAL) Take by mouth. naltrexone (TREXAN) 50 mg tablet Take 50 mg by mouth once daily. MULTIVITAMINS CHEWABLE TAB Take one(1) tablet daily. CLARAVIS 40 mg capsule TAKE 2 CAPSULES BY MOUTH DAILY with a fatty meal lamoTRIgine (LAMICTAL) 150 mg tablet Take 1 tablet by mouth once daily. (Patient not taking: Reported on 11/12/2017 ) AFLURIA QUAD [id number], PF, 60 mcg/0.5 mL syrg buPROPion XL (WELLBUTRIN XL) 300 mg 24 hr tablet Take 300 mg by mouth once daily. No current facility-administered medications for this visit. REVIEW OF SYSTEMS GENERAL: No weight loss, malaise or fevers RESPIRATORY: Negative for cough, hemoptysis, wheezing, COPD, dyspnea or shortness of breath CARDIOVASCULAR: Negative for chest pain, leg swelling, hypertension, CHF or palpitations PHYSICAL EXAMINATION: BP 103/69 Pulse 101 Temp 37.1 ?C (98.7 ?F) Ht 172.7 cm (5' 8) Wt 135.1 kg (297 lb 12.8 oz) BMI 45.28 kg/m? PHYSICAL EXAMINATION: General appearance: Well appearing, alert, in no acute distress, well-hydrated, well nourished. Lungs: Lungs clear to auscultation. No wheezing, rhonchi, rales Heart: RRR without murmur, gallop, or rubs. No ectopy Extremities: No deformities, edema, skin discoloration, clubbing or cyanosis. Good capillary refill. Neuro: Gait normal. Reflexes normal and symmetric. Sensation grossly intact. Psych: mood stable, behavior appopriate, judgment and insight good ASSESSMENT/PLAN: 1. HEAVENLY (generalized anxiety disorder) - ICD9: 300.02, ICD10: F41.1 (primary diagnosis) Cont abilify - LORAZEPAM 1 MG TABLET - HYDROXYZINE HCL 25 MG TABLET at night 2. Attention deficit hyperactivity disorder (ADHD), combined type - ICD9: 314.01, ICD10: F90.2 Start strattera Bipolar abilify Dimitris Samano MD Referring Provider: SELF [200] Allergies As of Date: 11/12/2017 Noted Allergy Reaction Artesia flies [Other] 08/24/2007 7 - Swelling DUST 04/30/2005 Comments: Sneezing and stuffy nose MOSQUITOS 09/07/2007 7 - Swelling POLLEN 04/30/2005 Comments: Sneezing and stuffy nose Date Reviewed: 11/12/2017 Reviewed by: Dimitris Samano - Fully Assessed Reason for Visit: Bipolar Disorder [514] weight management [Other] Anxiety [9] trouble focusing [Other] Reason For Visit History Recorded Primary Visit Diagnosis:HEAVENLY (generalized anxiety disorder) [F41.1] Other Visit Diagnosis:Attention deficit hyperactivity disorder (ADHD), combined type [F90.2] Order(s):LORazepam (ATIVAN) 1 mg tabletTake 1 tablet by mouth every 8 hours as needed for up to 30 days.Disp: 30 tabletRfl: 2 buPROPion XL (WELLBUTRIN XL) 150 mg 24 hr tabletTake 1 tablet by mouth once daily.Disp: 90 tabletRfl: 3 hydrOXYzine HCl (ATARAX) 25 mg tabletTake 1 tablet by mouth daily at bedtime.Disp: 30 tabletRfl: 5 naltrexone (TREXAN) 50 mg tabletTake 1 tablet by mouth once daily.Disp: 30 tabletRfl: 11 ARIPiprazole (ABILIFY) 5 mg tabletTake 1 tablet by mouth once daily.Disp: 90 tabletRfl: 3 atomoxetine (STRATTERA) 40 mg capsuleTake 1 capsule by mouth once daily. 1 po qd X 3 days then 2 po qdDisp: 60 capsuleRfl: 5 Prescriptions as of 11/12/2017 Sig: LORAZEPAM 1 MG TABLET Take 1 tablet by mouth every * BUPROPION XL 150 MG TAB Take 1 tablet by mouth once d* HYDROXYZINE HCL 25 MG TABLET Take 1 tablet by mouth daily * NALTREXONE 50 MG TABLET Take 1 tablet by mouth once d* ARIPIPRAZOLE 5 MG TABLET Take 1 tablet by mouth once d* DROSPIRENONE 3 MG-ETHINYL EST* Take 1 tablet by mouth once d* FLORAJEN3 ORAL Take by mouth once daily. POLYETHYLENE GLYCOL 3350 17 G* Take 17 g by mouth once daily. NAPROXEN ORAL Take by mouth. PREVACID ORAL Take by mouth. MULTIVITAMIN CHEWABLE TABLET Take one(1) tablet daily. ATOMOXETINE 40 MG CAPSULE Take 1 capsule by mouth once * CLARAVIS 40 MG CAPSULE TAKE 2 CAPSULES BY MOUTH EDILBERTO* AFLURIA QUAD [id number] (PF) 6* BUPROPION XL 300 MG 24 HR TAB Take 300 mg by mouth once saroj* Problem List As Of Date 11/12/2017 Noted Resolved Ingrowing nail [L60.0] INVALID FOR*07/23/2011 Cellulitis and abscess of toe, unspecified [L03*INVALID FOR*07/23/2011 Acne [L70.9] INVALID FOR* Obesity, Class III, BMI >= 40 E66.01 [E66.01] INVALID FOR* Bipolar 1 disorder (HCC) [F31.9] INVALID FOR* Body mass index (BMI) 45.0-49.9, adult (HCC) [Z*INVALID FOR* Moderate episode of recurrent major depressive *INVALID FOR* Prescriptions ordered this encounter Disp Refills Start End LORAZEPAM 1 MG TABLET 30 t* 2 11/12/2017 12/12/2017 Class: Print RX Route: ORAL Sig: Take 1 tablet by mouth every 8 hours as needed for up to 30 days. BUPROPION XL 150 MG TAB 90 t* 3 11/12/2017 11/12/2018 Route: ORAL Sig: Take 1 tablet by mouth once daily. HYDROXYZINE HCL 25 MG TABLET 30 t* 5 11/12/2017 11/12/2018 Route: ORAL Sig: Take 1 tablet by mouth daily at bedtime. NALTREXONE 50 MG TABLET 30 t* 11 11/12/2017 11/12/2018 Route: ORAL Sig: Take 1 tablet by mouth once daily. ARIPIPRAZOLE 5 MG TABLET 90 t* 3 11/12/2017 11/12/2018 Route: ORAL Sig: Take 1 tablet by mouth once daily. ATOMOXETINE 40 MG CAPSULE 60 c* 5 11/12/2017 Route: ORAL Sig: Take 1 capsule by mouth once daily. 1 po qd X 3 days then 2 po qd Medications Discontinued During This Encounter LORazepam (ATIVAN) 1 mg tablet 2 08/17/2017 11/12/2017 Class: Historical Med Sig: Disc: Reason for discontinue is not on file. buPROPion XL (WELLBUTRIN XL) 150 mg * 30 t* 2 07/14/2017 11/12/2017 Route: ORAL Sig: Take 1 tablet by mouth once daily. Disc: Reason for discontinue is not on file. hydrOXYzine HCl (ATARAX) 25 mg tablet 12/23/2016 11/12/2017 Class: Historical Med Sig: Disc: Reason for discontinue is not on file. naltrexone (TREXAN) 50 mg tablet 11/12/2017 Class: Historical Med Route: ORAL Sig: Take 50 mg by mouth once daily. Disc: Reason for discontinue is not on file. ARIPiprazole (ABILIFY) 5 mg tablet 30 t* 5 07/14/2017 11/12/2017 Route: ORAL Sig: Take 1 tablet by mouth once daily. Disc: Reason for discontinue is not on file. lamoTRIgine (LAMICTAL) 150 mg tablet 05/14/2017 11/12/2017 Class: Med Update Route: ORAL Sig: Take 1 tablet by mouth once daily. Patient not taking: Reported on 11/12/2017 Disc: Reason for discontinue is not on file. Encounter Status:Closed by DIMITRIS SAMANO MD on 11/12/17 PROGRESS Observed: 11/12/2017 Status: COMPLETED Source: [place] 3:52 PM [facility] REPOSITORY O ID: [id number] Author: Dimitris Samano Service: (none) Author Type: Physician Type: Progress Notes Filed: 11/13/2017 8:20 AM Note Text: Tata Sage is a 22 year old female known to our practice. Patient presents with: Bipolar Disorder weight management Anxiety trouble focusing bipolar disorder: Doing well on medications, no side effects, no new symptoms, needs refills. Patient has a hard time focusing at College. She has a hard time focusing and retaining information after reading things. Pt had trouble as a child, teachers were noticing but her mom was not doing anything about it. HEAVENLY: Doing well on medications, no side effects, no new symptoms, needs refills. Past Medical, Surgical, Family and Social Histories reviewed and updated today in the History tab of [facility]. Current Medications and allergies reviewed. ACTIVE PROBLEM LIST Acne Obesity, Class III, BMI >= 40 E66.01 Bipolar 1 Disorder (Hcc) Body Mass Index (Bmi) 45.0-49.9, Adult (Hcc) Moderate Episode of Recurrent Major Depressive Disorder (Hcc) ALLERGIES: Artesia Flies [Other]; Dust; Mosquitos; Pollen Current Outpatient Prescriptions: LORazepam (ATIVAN) 1 mg tablet ARIPiprazole (ABILIFY) 5 mg tablet Take 1 tablet by mouth once daily. buPROPion XL (WELLBUTRIN XL) 150 mg 24 hr tablet Take 1 tablet by mouth once daily. Drospirenone-Ethinyl Estradiol (NISREEN, 28,) 3-0.02 mg per tablet Take 1 tablet by mouth once daily. hydrOXYzine HCl (ATARAX) 25 mg tablet L ACIDOPHIL/B LACTIS/B LONGUM (FLORAJEN3 ORAL) Take by mouth once daily. polyethylene glycol 3350 (MIRALAX, GLYCOLAX) 17 gram/dose powder Take 17 g by mouth once daily. NAPROXEN ORAL Take by mouth. LANSOPRAZOLE (PREVACID ORAL) Take by mouth. naltrexone (TREXAN) 50 mg tablet Take 50 mg by mouth once daily. MULTIVITAMINS CHEWABLE TAB Take one(1) tablet daily. CLARAVIS 40 mg capsule TAKE 2 CAPSULES BY MOUTH DAILY with a fatty meal lamoTRIgine (LAMICTAL) 150 mg tablet Take 1 tablet by mouth once daily. (Patient not taking: Reported on 11/12/2017 ) AFLURIA QUAD [id number], PF, 60 mcg/0.5 mL syrg buPROPion XL (WELLBUTRIN XL) 300 mg 24 hr tablet Take 300 mg by mouth once daily. No current facility-administered medications for this visit. REVIEW OF SYSTEMS GENERAL: No weight loss, malaise or fevers RESPIRATORY: Negative for cough, hemoptysis, wheezing, COPD, dyspnea or shortness of breath CARDIOVASCULAR: Negative for chest pain, leg swelling, hypertension, CHF or palpitations PHYSICAL EXAMINATION: BP 103/69 Pulse 101 Temp 37.1 ?C (98.7 ?F) Ht 172.7 cm (5' 8) Wt 135.1 kg (297 lb 12.8 oz) BMI 45.28 kg/m? PHYSICAL EXAMINATION: General appearance: Well appearing, alert, in no acute distress, well-hydrated, well nourished. Lungs: Lungs clear to auscultation. No wheezing, rhonchi, rales Heart: RRR without murmur, gallop, or rubs. No ectopy Extremities: No deformities, edema, skin discoloration, clubbing or cyanosis. Good capillary refill. Neuro: Gait normal. Reflexes normal and symmetric. Sensation grossly intact. Psych: mood stable, behavior appopriate, judgment and insight good ASSESSMENT/PLAN: 1. HEAVENLY (generalized anxiety disorder) - ICD9: 300.02, ICD10: F41.1 (primary diagnosis) Cont abilify - LORAZEPAM 1 MG TABLET - HYDROXYZINE HCL 25 MG TABLET at night 2. Attention deficit hyperactivity disorder (ADHD), combined type - ICD9: 314.01, ICD10: F90.2 Start strattera Bipolar abilify Dimitris Samano MD ,URINE Collected: 09/15/2017 Status: F Source: [place] 9:57 AM [facility] REPOSITORY TYPE CODE TESTS RESULT OUT OF REFERENCE UNITS RANGE LAB L400.8000 Negative Normal HCGUQUAL Negative Result Comment: Very dilute urine specimens, as indicated by a low specific gravity, may not contain labor service representative levels of hCG. If is still suspected, a first morning urine specimen should be collected 48 hours later and tested. Performed By: #### L400.7600 #### [facility] [address] [place], [address] DOWNTIME REPORT Observed: 08/27/2017 Status: F Source: [place] 2:13 PM [facility] REPOSITORY [facility] Medical Records Department [address] [place] [address] Downtime Report MR#: [id number] Acct: [id number] Name: TATA SAGE Rep #: [id number] : 1995 21 From: Jon Godinez PCP: Dimitris Samano Status: REG CLI This patient was seen during an EMR downtime August 10, 2017 - August 17, 2017. This patient may have a combination of paper and electronic documentation or all paper documentation. All documentation is viewable within the e-chart portion of [employer] for each patient visit. ,URINE Collected: 08/11/2017 Status: F Source: [place] 2:18 PM [facility] REPOSITORY Order Comment: RESULT(S) PREVIOUSLY REPORTED ON MANUAL REQUISITION DURING DOWNTIME. TYPE CODE TESTS RESULT OUT OF REFERENCE UNITS RANGE LAB L400.8000 Negative Normal HCGUQUAL Negative Result Comment: Very dilute urine specimens, as indicated by a low specific gravity, may not contain labor service representative levels of hCG. If is still suspected, a first morning urine specimen should be collected 48 hours later and tested. Performed By: #### [id number] #### [facility] [address] [place], [address] PROGRESS Observed: 07/31/2017 Status: COMPLETED Source: [place] 9:08 AM [facility] REPOSITORY HNO ID: [id number] Author: Roseann Black Service: (none) Author Type: Physician Type: Progress Notes Filed: 07/31/2017 9:47 AM Note Text: Tata Sage is a 21 year old female who presents for discussion regarding possible breast reduction. Pt reports wears a DDD but spills out of it. Pt saw a surgeon but he told her to lose 100lbs- pt reports has lost 40lbs. Pt reports has neck and back discomfort from weight of breasts. Pt reports rashes under breasts and on sides due to large breasts and bras. Pt would like to know how to proceed in scheduling with a surgeon. PAST MEDICAL HISTORY Diagnosis Date - PMH - PAST MEDICAL HISTORY OF Color Vision - Normal - Shingles 07/2014 PAST SURGICAL HISTORY Procedure Laterality Date - NEXPLANON INSERTION 09/14/2014 - PAST SURGICAL HISTORY OF adenoids - PAST SURGICAL HISTORY OF ingrown toenail, several taken out - PAST SURGICAL HISTORY OF 12/18/2016 implant removed from arm FAMILY HISTORY Problem Relation Age of Onset - Hypertension Mother Maternal side - Heart Father [place] - Cancer Maternal Grandmother Lung cancer, smoker/Uterine cancer - Hypertension Maternal Grandmother - Colon Cancer Paternal Grandmother - Other [OTHER] Paternal Grandmother No breast/ovarian/colon cancer/MGM - cervical vs uterine cancer age 27 Social History Marital status: Single Spouse name: Years of education: 11 Number of children: 0 Occupational History 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 buPROPion XL (WELLBUTRIN XL) 150 mg 24 hr tablet Take 1 tablet by mouth once daily. lamoTRIgine (LAMICTAL) 150 mg tablet Take 1 tablet by mouth once daily. Drospirenone-Ethinyl Estradiol (NISREEN, 28,) 3-0.02 mg per tablet Take 1 tablet by mouth once daily. hydrOXYzine HCl (ATARAX) 25 mg tablet L ACIDOPHIL/B LACTIS/B LONGUM (FLORAJEN3 ORAL) Take by mouth once daily. polyethylene glycol 3350 (MIRALAX, GLYCOLAX) 17 gram/dose powder Take 17 g by mouth once daily. NAPROXEN ORAL Take by mouth. LANSOPRAZOLE (PREVACID ORAL) Take by mouth. buPROPion XL (WELLBUTRIN XL) 300 mg 24 hr tablet Take 300 mg by mouth once daily. naltrexone (TREXAN) 50 mg tablet Take 50 mg by mouth once daily. MULTIVITAMINS CHEWABLE TAB Take one(1) tablet daily. AFLURIA QUAD [id number], PF, 60 mcg/0.5 mL syrg No current facility-administered medications for this visit. Allergies As of Date: 07/31/2017 Allergen Noted Reaction DEER FLIES [OTHER] 08/24/2007 Swelling DUST 04/30/2005 MOSQUITOS 09/07/2007 Swelling POLLEN 04/30/2005 Fully Assessed 07/31/2017 REVIEW OF SYSTEMS Abdomen: No abdominal pain, nausea, vomiting, diarrhea, or constipation. Bladder: no dysuria . Breast: see above. No masses or nipple discharge . Expanded ROS: GENERAL: ++ 40lb weight loss Allergies and current medication updated:Yes EXAM: There were no vitals taken for this visit. GENERAL: pleasant, female in no apparent distress HEENT: atraumatic NECK: full range of motion DERMATOLOGY: Normal, without lesions, non-icteric and non-hirsute NEURO: alert and oriented x3,exam grossly non-focal EXTREMITIES: normal ASSESSMENT AND PLAN: 21yo with large breasts- requesting information on breast reduction surgery 1) names and numbers for surgeons given 2) reviewed indications for breast reduction 3) all questions answered - pt to call if needs further assistance MD VAIBHAV Scanlon Observed: 07/31/2017 Status: COMPLETED Source: [place] 9:05 AM [facility] REPOSITORY Office Visit (WOOB) TATA SAGE ([id number]) 1995 F Date Time Provider Department 07/31/17 9:05 AM ROSEANN WEINBERG During your visit today, we recorded the following information about you: Blood pressure Weight 132/86 132.5 kg Roseann Gomez MD 07/31/2017 9:47 AM Signed Tata Sage is a 21 year old female who presents for discussion regarding possible breast reduction. Pt reports wears a DDD but spills out of it. Pt saw a surgeon but he told her to lose 100lbs- pt reports has lost 40lbs. Pt reports has neck and back discomfort from weight of breasts. Pt reports rashes under breasts and on sides due to large breasts and bras. Pt would like to know how to proceed in scheduling with a surgeon. PAST MEDICAL HISTORY Diagnosis Date - PMH - PAST MEDICAL HISTORY OF Color Vision - Normal - Shingles 07/2014 PAST SURGICAL HISTORY Procedure Laterality Date - NEXPLANON INSERTION 09/14/2014 - PAST SURGICAL HISTORY OF adenoids - PAST SURGICAL HISTORY OF ingrown toenail, several taken out - PAST SURGICAL HISTORY OF 12/18/2016 implant removed from arm FAMILY HISTORY Problem Relation Age of Onset - Hypertension Mother Maternal side - Heart Father [place] - Cancer Maternal Grandmother Lung cancer, smoker/Uterine cancer - Hypertension Maternal Grandmother - Colon Cancer Paternal Grandmother - Other [OTHER] Paternal Grandmother No breast/ovarian/colon cancer/MGM - cervical vs uterine cancer age 27 Social History Marital status: Single Spouse name: Years of education: 11 Number of children: 0 Occupational History 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 buPROPion XL (WELLBUTRIN XL) 150 mg 24 hr tablet Take 1 tablet by mouth once daily. lamoTRIgine (LAMICTAL) 150 mg tablet Take 1 tablet by mouth once daily. Drospirenone-Ethinyl Estradiol (NISREEN, 28,) 3-0.02 mg per tablet Take 1 tablet by mouth once daily. hydrOXYzine HCl (ATARAX) 25 mg tablet L ACIDOPHIL/B LACTIS/B LONGUM (FLORAJEN3 ORAL) Take by mouth once daily. polyethylene glycol 3350 (MIRALAX, GLYCOLAX) 17 gram/dose powder Take 17 g by mouth once daily. NAPROXEN ORAL Take by mouth. LANSOPRAZOLE (PREVACID ORAL) Take by mouth. buPROPion XL (WELLBUTRIN XL) 300 mg 24 hr tablet Take 300 mg by mouth once daily. naltrexone (TREXAN) 50 mg tablet Take 50 mg by mouth once daily. MULTIVITAMINS CHEWABLE TAB Take one(1) tablet daily. AFLURIA QUAD 9627-6947, PF, 60 mcg/0.5 mL syrg No current facility-administered medications for this visit. Allergies As of Date: 07/31/2017 Allergen Noted Reaction DEER FLIES [OTHER] 08/24/2007 Swelling DUST 04/30/2005 MOSQUITOS 09/07/2007 Swelling POLLEN 04/30/2005 Fully Assessed 07/31/2017 REVIEW OF SYSTEMS Abdomen: No abdominal pain, nausea, vomiting, diarrhea, or constipation. Bladder: no dysuria . Breast: see above. No masses or nipple discharge . Expanded ROS: GENERAL: ++ 40lb weight loss Allergies and current medication updated:Yes EXAM: There were no vitals taken for this visit. GENERAL: pleasant, female in no apparent distress HEENT: atraumatic NECK: full range of motion DERMATOLOGY: Normal, without lesions, non-icteric and non-hirsute NEURO: alert and oriented x3,exam grossly non-focal EXTREMITIES: normal ASSESSMENT AND PLAN: 21yo with large breasts- requesting information on breast reduction surgery 1) names and numbers for surgeons given 2) reviewed indications for breast reduction 3) all questions answered - pt to call if needs further assistance MD Roseann Scanlon MD 07/31/2017 9:28 AM Signed Breast Reconstruction [facility] [facility] [phone] [facility] [phone] [facility] [phone] Ector Estrella [facility] [phone] Dr. Luis Hdz [facility] [phone], [place] [phone] Referring Provider: SELF [200] Allergies As of Date: 07/31/2017 Noted Allergy Reaction Artesia flies [Other] 08/24/2007 7 - Swelling DUST 04/30/2005 Comments: Sneezing and stuffy nose MOSQUITOS 09/07/2007 7 - Swelling POLLEN 04/30/2005 Comments: Sneezing and stuffy nose Date Reviewed: 07/31/2017 Reviewed by: Sindhu Wang Ma - Fully Assessed Reason for Visit: Consult [173] Cmt: breast reduction? Primary Visit Diagnosis:Large breasts [N62] Prescriptions as of 07/31/2017 Sig: CLARAVIS 40 MG CAPSULE TAKE 2 CAPSULES BY MOUTH EDILBERTO* ARIPIPRAZOLE 5 MG TABLET Take 1 tablet by mouth once d* BUPROPION XL 150 MG TAB Take 1 tablet by mouth once d* LAMOTRIGINE 150 MG TABLET Take 1 tablet by mouth once d* DROSPIRENONE-ETHINYL ESTRADIO* Take 1 tablet by mouth once d* HYDROXYZINE HCL 25 MG TABLET FLORAJEN3 ORAL Take by mouth once daily. POLYETHYLENE GLYCOL 3350 17 G* Take 17 g by mouth once daily. NAPROXEN ORAL Take by mouth. PREVACID ORAL Take by mouth. BUPROPION XL 300 MG 24 HR TAB Take 300 mg by mouth once saroj* NALTREXONE 50 MG TABLET Take 50 mg by mouth once edilberto* MULTIVITAMIN CHEWABLE TABLET Take one(1) tablet daily. AFLURIA QUAD [id number] (PF) 6* Problem List As Of Date 07/31/2017 Noted Resolved Ingrowing nail [L60.0] INVALID FOR*07/23/2011 Cellulitis and abscess of toe, unspecified [L03*INVALID FOR*07/23/2011 Acne [L70.9] INVALID FOR* Obesity, Class III, BMI >= 40 E66.01 [E66.01] INVALID FOR* Bipolar 1 disorder (HCC) [F31.9] INVALID FOR* Body mass index (BMI) 45.0-49.9, adult (HCC) [Z*INVALID FOR* Moderate episode of recurrent major depressive *INVALID FOR* Other instructions from your clinician: Breast Reconstruction [facility] [facility] [phone] [facility] [phone] Aba Braswellerson [facility] [phone] Dr. Ector Estrella [facility] [phone] Dr. Luis Hdz [facility] [phone], [place] [phone] Disposition: Return if symptoms worsen or fail to improve. Follow-up and Disposition History Recorded Encounter Status:Closed by ROSEANN BLACK MD on 07/31/17 PROGRESS Observed: 07/14/2017 Status: COMPLETED Source: [place] 11:54 AM [facility] HNO ID: [id number] Author: Dimitris Samano Service: (none) Author Type: Physician Type: Progress Notes Filed: 07/14/2017 11:59 AM Note Text: This note was created using [employer]. Subjective Tata Sage is a 21 year old female. Pt known to our practice presents for fu on bipolar disorder and depression. She has been lowering her lamictal due to interference with her birthcontrol. Wants to try abilify instead. The history is provided by the patient. Anxiety The patient's primary symptoms include agitation. The current episode started more than 1 year ago. The problem is unchanged. Pt is also here to have blood work done for claravis for her acne. Medication is working well. She is using two forms of control: condoms and oral contraceptives. Review of Systems Constitutional: Negative. HENT: Negative. Eyes: Negative. Respiratory: Negative. Cardiovascular: Negative. Gastrointestinal: Negative. Endocrine: Negative. Genitourinary: Negative. Musculoskeletal: Negative. Skin: Negative. Allergic/Immunologic: Negative. Neurological: Negative. Hematological: Negative. Psychiatric/Behavioral: Positive for agitation. The patient is nervous/anxious. Objective BP 124/86 Pulse 84 Temp 37.2 ?C (99 ?F) Resp 10 Ht 172.7 cm (5' 8) Wt 132 kg (291 lb) BMI 44.25 kg/m? Physical Exam Constitutional: She appears well-developed and well-nourished. Cardiovascular: Normal rate, regular rhythm and normal heart sounds. Pulmonary/Chest: Effort normal and breath sounds normal. Psychiatric: Her speech is normal and behavior is normal. Judgment and thought content normal. Her mood appears anxious. Cognition and memory are normal. Nursing note and vitals reviewed. ASSESSMENT/PLAN: 1. Encounter for medication monitoring - ICD9: V58.83, ICD10: Z51.81 (primary diagnosis) - LIPID PANEL BASIC - HEPATIC FUNCTION PNL - HCG QUANTITATIVE 2. Acne vulgaris - ICD9: 706.1, ICD10: L70.0 ipladge 3. Bipolar 1 disorder (HCC) - ICD9: 296.7, ICD10: F31.9 Start suleiman Samano MD HCG, QUANTITATIVE BL Collected: 07/14/2017 Status: F Source: [place] 11:49 AM [facility] REPOSITORY TYPE CODE TESTS RESULT OUT OF REFERENCE UNITS RANGE LAB HCGQT <5.0 mU/mL HCG, Quantitative Bl <0.1 Result Comment: NEGATIVE Performed By: #### HCGQT, HFP, LIPB #### [facility] [address], [place] [address] HEPATIC FUNCTN PANEL Collected: 07/14/2017 Status: F Source: [place] 11:49 AM [facility] REPOSITORY TYPE CODE TESTS RESULT OUT OF REFERENCE UNITS RANGE LAB ALB 3.9-4.9 g/dL Albumin 4.5 LAB TBIL 0.2-1.3 mg/dL Bilirubin, Total 0.2 LAB CBIL <0.2 mg/dL Bilirubin,Conjuga <0.2 max LAB ALKP 32-117 U/L Alkaline Phosphatase 72 LAB AST 13-35 U/L AST 20 LAB ALT 7-38 U/L ALT 20 LAB TP 6.3-8.0 g/dL Protein, High Total 8.4 Performed By: #### HCGQT, HFP, LIPB #### [facility] [address], [place] [address] LIPID PANEL, BASIC Collected: 07/14/2017 Status: F Source: [place] 11:49 AM [facility] REPOSITORY TYPE CODE TESTS RESULT OUT OF REFERENCE UNITS RANGE LAB CHOL <200 mg/dL Cholesterol 148 Result Comment: <200 mg/dL, Desirable 200-239 mg/dL, Borderline high >239 mg/dL, High LAB TRIGLY <150 mg/dL Triglyceride High 201 Result Comment: <150 mg/dL, Normal 150-199 mg/dL, Borderline high 200-499 mg/dL, High >499 mg/dL, Very high LAB HDL >39 mg/dL HDL-Cholesterol 60 Result Comment: 40-59 mg/dL, Acceptable >59 mg/dL, High: Negative risk factor for coronary heart disease <40 mg/dL, Low: Positive risk factor for coronary heart disease LAB LDL <100 mg/dL LDL-Cholesterol 48 Result Comment: <100 mg/dL, Optimal 100-129 mg/dL, Near optimal/above optimal 130-159 mg/dL, Borderline high 160-189 mg/dL, High >189 mg/dL, Very high Secondary prevention optimal LDL Cholesterol levels are recommended to be < 70 mg/dL LAB NONHDL <130 mg/dL Non HDL Cholesterol 88 Result Comment: <130 mg/dL, Optimal 130-159 mg/dL, Near optimal/above optimal 160-189 mg/dL, Borderline high 190-219 mg/dL, High >219 mg/dL, Very high Secondary prevention optimal non HDL Cholesterol levels are recommended to be < 100 mg/dL LAB FT hrs Fasting Time 12 LAB VLDL <30 mg/dL High VLDL Cholesterol 40 LAB TCHDL <5.10 TC:HDL Ratio 2.47 LAB LDLHDL <2.54 LDL:HDL Ratio 0.80 Result Comment: Reference: 1. National Cholesterol Education Program ATP III Guideline At-A-Glance Quick Desk Reference: National Heart, Lung, and Blood [place]. National Institutes of Health. 2001: NIH Publication No. 01-3305. 2. An International Atherosclerosis Society position paper: global recommendations for the management of dyslipidemia: executive summary, Atherosclerosis. 2014: 232(2):410-413. Cut Points from the Lipid Research Clinic's Prevalence Study for ages 20 to 24 years can be located in the following reference: Expert Panel on Integrated Guidelines for Cardiovascular Health and Risk R eduction in Children and Adolescents: National Heart, Lung and Blood [place]. Pediatrics. 2011:128(Suppl 5):Z695-786. Performed By: #### HCGQT, HFP, LIPB #### [facility] [address] [address] CNOV Observed: 07/14/2017 Status: COMPLETED Source: [place] 11:00 AM [facility] REPOSITORY Office Visit (STFLF) TATA SAGE ([id number]) 1995 F Date Time Provider Department 07/14/17 11:00 AM DIMITRIS SAMANONABAS STFLF During your visit today, we recorded the following information about you: Temperature Pulse Respiration Blood pressure 99 degrees 84/minute 10/minute 124/86 Weight Height 132 kg 1.727 m Daljit Dimitris Cdae 07/14/2017 11:59 AM Signed This note was created using [employer]. Subjective Tata Sage is a 21 year old female. Pt known to our practice presents for fu on bipolar disorder and depression. She has been lowering her lamictal due to interference with her birthcontrol. Wants to try abilify instead. The history is provided by the patient. Anxiety The patient's primary symptoms include agitation. The current episode started more than 1 year ago. The problem is unchanged. Pt is also here to have blood work done for claravis for her acne. Medication is working well. She is using two forms of control: condoms and oral contraceptives. Review of Systems Constitutional: Negative. HENT: Negative. Eyes: Negative. Respiratory: Negative. Cardiovascular: Negative. Gastrointestinal: Negative. Endocrine: Negative. Genitourinary: Negative. Musculoskeletal: Negative. Skin: Negative. Allergic/Immunologic: Negative. Neurological: Negative. Hematological: Negative. Psychiatric/Behavioral: Positive for agitation. The patient is nervous/anxious. Objective BP 124/86 Pulse 84 Temp 37.2 ?C (99 ?F) Resp 10 Ht 172.7 cm (5' 8) Wt 132 kg (291 lb) BMI 44.25 kg/m? Physical Exam Constitutional: She appears well-developed and well-nourished. Cardiovascular: Normal rate, regular rhythm and normal heart sounds. Pulmonary/Chest: Effort normal and breath sounds normal. Psychiatric: Her speech is normal and behavior is normal. Judgment and thought content normal. Her mood appears anxious. Cognition and memory are normal. Nursing note and vitals reviewed. ASSESSMENT/PLAN: 1. Encounter for medication monitoring - ICD9: V58.83, ICD10: Z51.81 (primary diagnosis) - LIPID PANEL BASIC - HEPATIC FUNCTION PNL - HCG QUANTITATIVE 2. Acne vulgaris - ICD9: 706.1, ICD10: L70.0 ipladge 3. Bipolar 1 disorder (HCC) - ICD9: 296.7, ICD10: F31.9 Start suleiman Samano MD Referring Provider: DIMITRIS SAMANO [[id number]] Allergies As of Date: 07/14/2017 Noted Allergy Reaction Artesia flies [Other] 08/24/2007 7 - Swelling DUST 04/30/2005 Comments: Sneezing and stuffy nose MOSQUITOS 09/07/2007 7 - Swelling POLLEN 04/30/2005 Comments: Sneezing and stuffy nose Date Reviewed: 07/14/2017 Reviewed by: Dimitris Samano - Fully Assessed Reason for Visit: Anxiety [9] Cmt: Pt down to 75mg lamictal Primary Visit Diagnosis:Encounter for medication monitoring [Z51.81] Other Visit Diagnoses:Acne vulgaris [L70.0] Bipolar 1 disorder (HCC) [F31.9] Order(s):ARIPiprazole (ABILIFY) 5 mg tabletTake 1 tablet by mouth once daily.Disp: 30 tabletRfl: 5 buPROPion XL (WELLBUTRIN XL) 150 mg 24 hr tabletTake 1 tablet by mouth once daily.Disp: 30 tabletRfl: 2 LIPID PANEL BASIC [SQLIPB] Order #: [id number] FUTURE HEPATIC FUNCTION PNL [SQHFP] Order #: [id number] FUTURE HCG QUANTITATIVE [SQHCGQT] Order #: [id number] FUTURE Prescriptions as of 07/14/2017 Sig: LAMOTRIGINE 150 MG TABLET Take 1 tablet by mouth once d* DROSPIRENONE-ETHINYL ESTRADIO* Take 1 tablet by mouth once d* HYDROXYZINE HCL 25 MG TABLET FLORAJEN3 ORAL Take by mouth once daily. POLYETHYLENE GLYCOL 3350 17 G* Take 17 g by mouth once daily. NAPROXEN ORAL Take by mouth. PREVACID ORAL Take by mouth. BUPROPION XL 300 MG 24 HR TAB Take 300 mg by mouth once saroj* NALTREXONE 50 MG TABLET Take 50 mg by mouth once edilberto* MULTIVITAMIN CHEWABLE TABLET Take one(1) tablet daily. CLARAVIS 40 MG CAPSULE TAKE 2 CAPSULES BY MOUTH EDILBERTO* ARIPIPRAZOLE 5 MG TABLET Take 1 tablet by mouth once d* BUPROPION XL 150 MG TAB Take 1 tablet by mouth once d* AFLURIA QUAD 3780-2174 (PF) 6* Problem List As Of Date 07/14/2017 Noted Resolved Ingrowing nail [L60.0] INVALID FOR*07/23/2011 Cellulitis and abscess of toe, unspecified [L03*INVALID FOR*07/23/2011 Acne [L70.9] INVALID FOR* Obesity, Class III, BMI >= 40 E66.01 [E66.01] INVALID FOR* Bipolar 1 disorder (HCC) [F31.9] INVALID FOR* Body mass index (BMI) 45.0-49.9, adult (HCC) [Z*INVALID FOR* Moderate episode of recurrent major depressive *INVALID FOR* Prescriptions ordered this encounter Disp Refills Start End ARIPIPRAZOLE 5 MG TABLET 30 t* 5 07/14/2017 01/10/2018 Route: ORAL Sig: Take 1 tablet by mouth once daily. BUPROPION XL 150 MG TAB 30 t* 2 07/14/2017 10/12/2017 Route: ORAL Sig: Take 1 tablet by mouth once daily. Follow-up and Disposition History Recorded Encounter Status:Closed by DIMITRIS SAMANO MD on 07/14/17 [facility] Observed: 07/14/2017 Status: COMPLETED Source: [place] 12:00 AM [facility] REPOSITORY Telephone (STVTF) TATA SAGE ([id number]) 1995 F Date Time Provider Department 07/14/17 DIMITRIS SAMANO RUST During your visit today, we recorded the following information about you: Freddy Yuen Ma 07/14/2017 4:07 PM Signed Dimitris Samano [facility] ? I need ipladge done for this patient's medication. Please let a derm nurse do it. Ordered labs now. Lupe Puentes 07/14/2017 5:20 PM Signed DBL did you give patient an accutane book?. If so patient needs to bring that back with her portion filled out and ipledge program needs explained. Fasting labs need to be done along with two negative tests 30 days apart. When patient brings back her book that is completed by her and Dr. Samano, then we can register on [employer]. Patient will then need to wait for her information to come in the mail so she can do her part on the website. Dimitris Samano 07/14/2017 5:31 PM Signed Labs were done and everything is good, patient is on 2 forms of contraception and I believe she was already initiated with ipdledge with Dr. Birmingham. Please see what else needs to be done Send to derm nurse please Creed Deborah Johnson 07/15/2017 8:16 AM Signed We are unable to confirm patients that are registered under any other physician. If she is getting meds from Dr. Birmingham, she must continue to get filled there. Allergies As of Date: 07/14/2017 Noted Allergy Reaction Artesia flies [Other] 08/24/2007 7 - Swelling DUST 04/30/2005 Comments: Sneezing and stuffy nose MOSQUITOS 09/07/2007 7 - Swelling POLLEN 04/30/2005 Comments: Sneezing and stuffy nose Date Reviewed: 07/14/2017 Reviewed by: Dimitris Samano - Fully Assessed Reason for Visit: Medication Request [138] Prescriptions as of 07/14/2017 Sig: CLARAVIS 40 MG CAPSULE TAKE 2 CAPSULES BY MOUTH EDILBERTO* ARIPIPRAZOLE 5 MG TABLET Take 1 tablet by mouth once d* BUPROPION XL 150 MG TAB Take 1 tablet by mouth once d* LAMOTRIGINE 150 MG TABLET Take 1 tablet by mouth once d* DROSPIRENONE-ETHINYL ESTRADIO* Take 1 tablet by mouth once d* HYDROXYZINE HCL 25 MG TABLET AFLURIA QUAD 5729-4871 (PF) 6* FLORAJEN3 ORAL Take by mouth once daily. POLYETHYLENE GLYCOL 3350 17 G* Take 17 g by mouth once daily. NAPROXEN ORAL Take by mouth. PREVACID ORAL Take by mouth. BUPROPION XL 300 MG 24 HR TAB Take 300 mg by mouth once saroj* NALTREXONE 50 MG TABLET Take 50 mg by mouth once edilberto* MULTIVITAMIN CHEWABLE TABLET Take one(1) tablet daily. Problem List As Of Date 07/14/2017 Noted Resolved Ingrowing nail [L60.0] INVALID FOR*07/23/2011 Cellulitis and abscess of toe, unspecified [L03*INVALID FOR*07/23/2011 Acne [L70.9] INVALID FOR* Obesity, Class III, BMI >= 40 E66.01 [E66.01] INVALID FOR* Bipolar 1 disorder (HCC) [F31.9] INVALID FOR* Body mass index (BMI) 45.0-49.9, adult (HCC) [Z*INVALID FOR* Moderate episode of recurrent major depressive *INVALID FOR* Encounter Status:Closed by FREDDY YUEN MA on 07/14/17 PROGRESS Observed: 07/07/2017 Status: COMPLETED Source: [place] 9:59 AM [facility] REPOSITORY [facility] ID: [id number] Author: Freddy Miller Ma Service: (none) Author Type: (none) Type: Progress Notes Filed: 07/07/2017 10:50 AM Note Text: ? Evelin Suresh DPM Department of Podiatry [facility] [address] Dept: [phone] Dept 07/07/2017 Follow Up Podiatric Office Visit: HPI: Tata Sage is a 21 year old female. Patient presents for follow up for plantar fasciitis follow up. Patient reports bilateral foot pain R>L with prolonged standing at work. 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 Patient has tried icing, stretching, soaking, NSAIDS, and comfort mat for work with no relief. Patient did get new proper shoes and insoles, NB 1165, which she says are very comfortable and helpful. Patient was offered injection at last visit and declined. She wishes to revisit that option now. Physical Exam: Constitutional: Pt is a well developed 21 year old female who is alert, oriented and cooperative Eyes: Following during examination. No redness or drainage. Respiratory: RR normal and nonlabored. Even breathing. No evidence of distress or shortness of breath. Psychology: Patient is engaged during conversation. Normal affect and mood. Does not appear depressed or anxious during encounter. Vascular: Dorsalis pedis and posterior tibial pulses palpable Capillary Fill time < 5 seconds to digits 1-5 b/l Skin temperature warm to warm proximal to distal b/l Hair growth present to digits Neurological: intact light touch/epicritic sensation intact protective sensation, insignificant neurological deficits. Dermatological: Skin appears well hydrated and supple. good color, texture, turgor. Callosities absent. Open lesions absent. Musculoskeletal/Orthopaedic: Patient has pain to palpation of bilateral calcaneal tubercle Foot type is neutral structurally AJ ROM is full with knee extended and flexed; no equinus noted 1st MPJ is full when loaded and no pain or crepitus are noted with ROM. MTJ, STJ are full and free of pain and crepitus. +5/5 muscle strength dorsiflexion, plantarflexion, inversion, eversion b/l ASSESSMENT: (M72.2) Bilateral plantar fasciitis (primary encounter diagnosis) Comment: patient examined and informed of findings. Discussed custom orthotics, ice, NSAIDS, physical therapy, night splint and injection. Patient wishes to proceed with orthotics, icing, and NSAIDS. If no relief, will attempt injection at next visit. Initially she elected for injection but at time of injection, she opted against. Plan: 1. Continue icing, NSAIDS, shoes, and stretching 2. Consult to Physical Therapy and Custom Insoles 3. RTC 4 weeks for follow up The documentation for this note was completed by Freddy Miller Ma acting as scribe for Evelin Suresh. July 07, 2017 9:59 AM. I agree with the Chief Complaint, ROS, and Past Histories independently gathered by the clinical system support technician and the remaining scribed note accurately describes my personal service to the patient. BRITT Zhang Observed: 07/07/2017 Status: COMPLETED Source: [place] 9:55 AM [facility] Office Visit (PODIWS) TATA SAGE ([id number]) 1995 F Date Time Provider Department 07/07/17 9:55 AM EVELIN SURESH PODIWS During your visit today, we recorded the following information about you: Freddy Fatimah Miller Ma 07/07/2017 10:39 AM Signed ? Evelin Suresh DPM Department of Podiatry [address] [facility] [address] Dept: [phone] Dept 07/07/2017 Follow Up Podiatric Office Visit: HPI: Tata Sage is a 21 year old female. Patient presents for follow up for plantar fasciitis follow up. Patient reports bilateral foot pain R>L with prolonged standing at work. 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 Patient has tried icing, stretching, soaking, NSAIDS, and comfort mat for work with no relief. Patient did get new proper shoes and insoles, NB 1165, which she says are very comfortable and helpful. Patient was offered injection at last visit and declined. She wishes to revisit that option now. Physical Exam: Constitutional: Pt is a well developed 21 year old female who is alert, oriented and cooperative Eyes: Following during examination. No redness or drainage. Respiratory: RR normal and nonlabored. Even breathing. No evidence of distress or shortness of breath. Psychology: Patient is engaged during conversation. Normal affect and mood. Does not appear depressed or anxious during encounter. Vascular: Dorsalis pedis and posterior tibial pulses palpable Capillary Fill time < 5 seconds to digits 1-5 b/l Skin temperature warm to warm proximal to distal b/l Hair growth present to digits Neurological: intact light touch/epicritic sensation intact protective sensation, insignificant neurological deficits. Dermatological: Skin appears well hydrated and supple. good color, texture, turgor. Callosities absent. Open lesions absent. Musculoskeletal/Orthopaedic: Patient has pain to palpation of bilateral calcaneal tubercle Foot type is neutral structurally AJ ROM is full with knee extended and flexed; no equinus noted 1st MPJ is full when loaded and no pain or crepitus are noted with ROM. MTJ, STJ are full and free of pain and crepitus. +5/5 muscle strength dorsiflexion, plantarflexion, inversion, eversion b/l ASSESSMENT: (M72.2) Bilateral plantar fasciitis (primary encounter diagnosis) Comment: patient examined and informed of findings. Discussed custom orthotics, ice, NSAIDS, physical therapy, night splint and injection. Patient wishes to proceed with orthotics, icing, and NSAIDS. If no relief, will attempt injection at next visit. Initially she elected for injection but at time of injection, she opted against. Plan: 1. Continue icing, NSAIDS, shoes, and stretching 2. Consult to Physical Therapy and Custom Insoles 3. RTC 4 weeks for follow up The documentation for this note was completed by Freddy Miller Ma acting as scribe for Evelin Suresh. July 07, 2017 9:59 AM. I agree with the Chief Complaint, ROS, and Past Histories independently gathered by the clinical system support technician and the remaining scribed note accurately describes my personal service to the patient. BRITT Zhang Ma 07/07/2017 10:42 AM Addendum Schedule physical therapy and custom insoles [facility] [address] [facility], [facility] [address] PH: [phone] [place] [address], [facility] [address] PH: [phone] [place] [address] [facility] [address] PH: [phone] [place] [address] [address] PH: [phone] or [phone] [place] [address] [address] , [facility] [address] PH: [phone] [place] [address] [facility] [address] PH: [phone] Referring Provider: SELF [200] Allergies As of Date: 07/07/2017 Noted Allergy Reaction Artesia flies [Other] 08/24/2007 7 - Swelling DUST 04/30/2005 Comments: Sneezing and stuffy nose MOSQUITOS 09/07/2007 7 - Swelling POLLEN 04/30/2005 Comments: Sneezing and stuffy nose Date Reviewed: 07/07/2017 Reviewed by: Freddy Miller Ma - Fully Assessed Reason for Visit: Swelling [205] Primary Visit Diagnosis:Bilateral plantar fasciitis [M72.2] Order(s):bupivacaine 0.5 % 2.5 mg injection (MARCAINE MDV)Disp: Rfl: triamcinolone acetonide 20 mg injection (KENALOG 40)Disp: Rfl: dexamethasone sodium phosphate 2 mg injection (DECADRON)Disp: Rfl: CONSULT TO PHYSICAL THERAPY [9032] Order #: [id number]: 1 CONSULT TO ORTHOTIC/PROSTHETIC [857517] Order #: [id number]: 1 Prescriptions as of 07/07/2017 Sig: LAMOTRIGINE 150 MG TABLET Take 1 tablet by mouth once d* DROSPIRENONE-ETHINYL ESTRADIO* Take 1 tablet by mouth once d* HYDROXYZINE HCL 25 MG TABLET FLORAJEN3 ORAL Take by mouth once daily. POLYETHYLENE GLYCOL 3350 17 G* Take 17 g by mouth once daily. NAPROXEN ORAL Take by mouth. PREVACID ORAL Take by mouth. BUPROPION XL 300 MG 24 HR TAB Take 300 mg by mouth once saroj* NALTREXONE 50 MG TABLET Take 50 mg by mouth once edilberto* MULTIVITAMIN CHEWABLE TABLET Take one(1) tablet daily. MELECIO SPEARS (PF) 6* Medication notes this encounter AFLURIA QUAD [id number] (PF) 60 MCG/0.5 ML INTRAMUSCULAR SYRINGE >> Freddy Miller Ma 07/07/2017 9:55 AM >> FREDDY MILLER MA July 07, 2017 9:55 AM Flu shot Problem List As Of Date 07/07/2017 Noted Resolved Ingrowing nail [L60.0] INVALID FOR*07/23/2011 Cellulitis and abscess of toe, unspecified [L03*INVALID FOR*07/23/2011 Acne [L70.9] INVALID FOR* Obesity, Class III, BMI >= 40 E66.01 [E66.01] INVALID FOR* Bipolar 1 disorder (HCC) [F31.9] INVALID FOR* Body mass index (BMI) 45.0-49.9, adult (HCC) [Z*INVALID FOR* Moderate episode of recurrent major depressive *INVALID FOR* Other instructions from your clinician: Schedule physical therapy and custom insoles [place] [address], [facility] [address] PH: [phone] [place] [address], [facility] [address] PH: [phone] [place] [address] [facility] [address] PH: [phone] [place] [address], [facility] [address] PH: [phone] or [phone] [place] [address], [facility] [address] PH: [phone] [place] [address], [facility] [address] PH: [phone] Prescriptions ordered this encounter Disp Refills Start End BUPIVACAINE 0.5 % (5 MG/ML) INJECTIO* 07/07/2017 07/07/2017 Route: INTRAMUSCULA TRIAMCINOLONE ACETONIDE 40 MG/ML DIANELYS* 07/07/2017 07/07/2017 Route: INTRAMUSCULA DEXAMETHASONE 4 MG/ML INJECTION SOLU* 07/07/2017 07/07/2017 Route: INTRAMUSCULA Disposition: Return in about 4 weeks (around 08/04/2017) for possible R heel injection. Follow-up and Disposition History Recorded Encounter Status:Closed by EVELIN SURESH DPM on 07/07/17 ,URINE Collected: 06/29/2017 Status: F Source: [place] 10:50 AM [facility] REPOSITORY TYPE CODE TESTS RESULT OUT OF REFERENCE UNITS RANGE LAB L400.8000 Negative Normal HCGUQUAL Negative Result Comment: Very dilute urine specimens, as indicated by a low specific gravity, may not contain labor service representative levels of hCG. If is still suspected, a first morning urine specimen should be collected 48 hours later and tested. Performed By: #### L400.7600 #### [facility] [address] [place], [address] ,URINE Collected: 05/27/2017 Status: F Source: [place] 10:35 AM [facility] REPOSITORY TYPE CODE TESTS RESULT OUT OF REFERENCE UNITS RANGE LAB L400.8000 Negative Normal HCGUQUAL Negative Result Comment: Very dilute urine specimens, as indicated by a low specific gravity, may not contain labor service representative levels of hCG. If is still suspected, a first morning urine specimen should be collected 48 hours later and tested. Performed By: #### [id number] #### [facility] [place], [address] PROGRESS Observed: 05/14/2017 Status: COMPLETED Source: [place] 11:37 AM [facility] REPOSITORY HNO ID: [id number] Author: Dimitris Samano Service: (none) Author Type: Physician Type: Progress Notes Filed: 05/14/2017 11:41 AM Note Text: Tata Sage is a 21 year old female who presents For follow up of bipolar disorder. Pt is about to start accutane and needs to be monitored for mood disorder. She is doing very well on lamotrigine. She understands that it interferes with her control though. Past Medical, Surgical, Family and Social Histories reviewed and updated today in the History tab of PillPack. Current Medications and allergies reviewed. ACTIVE PROBLEM LIST Acne Obesity, Class III, BMI >= 40 E66.01 Bipolar 1 Disorder (Hcc) Body Mass Index (Bmi) 45.0-49.9, Adult (Hcc) Moderate Episode of Recurrent Major Depressive Disorder (Hcc) ALLERGIES: Dust; Artesia Flies [Other]; Mosquitos; Pollen Current Outpatient Prescriptions: lamoTRIgine (LAMICTAL) 150 mg tablet Take 1 tablet by mouth once daily. LORazepam (ATIVAN) 1 mg tablet Take 1 tablet by mouth every 6 hours as needed for up to 30 days. Drospirenone-Ethinyl Estradiol (NISREEN, 28,) 3-0.02 mg per tablet Take 1 tablet by mouth once daily. hydrOXYzine HCl (ATARAX) 25 mg tablet AFLURIA QUAD [id number], PF, 60 mcg/0.5 mL syrg L ACIDOPHIL/B LACTIS/B LONGUM (FLORAJEN3 ORAL) Take by mouth once daily. polyethylene glycol 3350 (MIRALAX, GLYCOLAX) 17 gram/dose powder Take 17 g by mouth once daily. NAPROXEN ORAL Take by mouth. LANSOPRAZOLE (PREVACID ORAL) Take by mouth. buPROPion XL (WELLBUTRIN XL) 300 mg 24 hr tablet Take 300 mg by mouth once daily. naltrexone (TREXAN) 50 mg tablet Take 50 mg by mouth once daily. MULTIVITAMINS CHEWABLE TAB Take one(1) tablet daily. No current facility-administered medications for this visit. REVIEW OF SYSTEMS GENERAL: No weight loss, malaise or fevers RESPIRATORY: Negative for cough, hemoptysis, wheezing, COPD, dyspnea or shortness of breath CARDIOVASCULAR: Negative for chest pain, leg swelling, hypertension, CHF or palpitations GI: No nausea, vomiting, or diarrhea MUSCULOSKELETAL: Negative for joint pain or swelling, back pain or muscle pain SKIN: Negative for lesions, rash, and itching PSYCH: See HPI NEURO: No history of headaches, syncope, paralysis, seizures or tremors PHYSICAL EXAMINATION: BP 134/90 (BP Site: Left Arm, BP Position: Sitting, BP Cuff Size: Large Adult) Temp 37.8 ?C (100.1 ?F) (Temporal Artery) Ht 172.7 cm (5' 8) Wt 130.5 kg (287 lb 12.8 oz) BMI 43.76 kg/m2 General appearance: Well appearing, alert, in no acute distress, well-hydrated, well nourished. Lungs: Lungs clear to auscultation. No wheezing, rhonchi, rales Heart: RRR without murmur, gallop, or rubs. No ectopy Abdomen: Normal abdominal exam, Abdomen soft, non-tender. Bowel sounds normal. No masses, organomegaly Extremities: No deformities, edema, skin discoloration, clubbing or cyanosis. Good capillary refill. Musculoskeletal: No joint swelling, deformity, or tenderness ASSESSMENT/PLAN: 1. HEAVENLY (generalized anxiety disorder) - ICD9: 300.02, ICD10: F41.1 (primary diagnosis) - LORAZEPAM 1 MG TABLET 2. Obesity, Class III, BMI 40-49.9 (morbid obesity) (HCC) - ICD9: 278.01, ICD10: E66.01 3. Bipolar 1 disorder (HCC) - ICD9: 296.7, ICD10: F31.9 Cont meds, close monitoring 4. Moderate episode of recurrent major depressive disorder (HCC) - ICD9: 296.32, ICD10: F33.1 Dimitris Samano MD CNOV Observed: 05/14/2017 Status: COMPLETED Source: [place] 11:20 AM [facility] REPOSITORY Office Visit (STFLF) TEREZATATA DAVID ([id number]) 1995 F Date Time Provider Department 05/14/17 11:20 AM DIMITRIS SAMANO STFLF During your visit today, we recorded the following information about you: Temperature Blood pressure Weight Height 100.1 degrees 120/94 130.5 kg 1.727 m Dimitris Samano MD 05/14/2017 11:41 AM Signed Tata Ruffens is a 21 year old female who presents For follow up of bipolar disorder. Pt is about to start accutane and needs to be monitored for mood disorder. She is doing very well on lamotrigine. She understands that it interferes with her control though. Past Medical, Surgical, Family and Social Histories reviewed and updated today in the History tab of PillPack. Current Medications and allergies reviewed. ACTIVE PROBLEM LIST Acne Obesity, Class III, BMI ANDgt;= 40 E66.01 Bipolar 1 Disorder (Hcc) Body Mass Index (Bmi) 45.0-49.9, Adult (Hcc) Moderate Episode of Recurrent Major Depressive Disorder (Hcc) ALLERGIES: Dust; Artesia Flies [Other]; Mosquitos; Pollen Current Outpatient Prescriptions: lamoTRIgine (LAMICTAL) 150 mg tablet Take 1 tablet by mouth once daily. LORazepam (ATIVAN) 1 mg tablet Take 1 tablet by mouth every 6 hours as needed for up to 30 days. Drospirenone-Ethinyl Estradiol (NISREEN, 28,) 3-0.02 mg per tablet Take 1 tablet by mouth once daily. hydrOXYzine HCl (ATARAX) 25 mg tablet AFLURIA QUAD [id number], PF, 60 mcg/0.5 mL syrg L ACIDOPHIL/B LACTIS/B LONGUM (FLORAJEN3 ORAL) Take by mouth once daily. polyethylene glycol 3350 (MIRALAX, GLYCOLAX) 17 gram/dose powder Take 17 g by mouth once daily. NAPROXEN ORAL Take by mouth. LANSOPRAZOLE (PREVACID ORAL) Take by mouth. buPROPion XL (WELLBUTRIN XL) 300 mg 24 hr tablet Take 300 mg by mouth once daily. naltrexone (TREXAN) 50 mg tablet Take 50 mg by mouth once daily. MULTIVITAMINS CHEWABLE TAB Take one(1) tablet daily. No current facility-administered medications for this visit. REVIEW OF SYSTEMS GENERAL: No weight loss, malaise or fevers RESPIRATORY: Negative for cough, hemoptysis, wheezing, COPD, dyspnea or shortness of breath CARDIOVASCULAR: Negative for chest pain, leg swelling, hypertension, CHF or palpitations GI: No nausea, vomiting, or diarrhea MUSCULOSKELETAL: Negative for joint pain or swelling, back pain or muscle pain SKIN: Negative for lesions, rash, and itching PSYCH: See HPI NEURO: No history of headaches, syncope, paralysis, seizures or tremors PHYSICAL EXAMINATION: BP 134/90 (BP Site: Left Arm, BP Position: Sitting, BP Cuff Size: Large Adult) Temp 37.8 ?C (100.1 ?F) (Temporal Artery) Ht 172.7 cm (5' 8ANDquot;) Wt 130.5 kg (287 lb 12.8 oz) BMI 43.76 kg/m2 General appearance: Well appearing, alert, in no acute distress, well-hydrated, well nourished. Lungs: Lungs clear to auscultation. No wheezing, rhonchi, rales Heart: RRR without murmur, gallop, or rubs. No ectopy Abdomen: Normal abdominal exam, Abdomen soft, non-tender. Bowel sounds normal. No masses, organomegaly Extremities: No deformities, edema, skin discoloration, clubbing or cyanosis. Good capillary refill. Musculoskeletal: No joint swelling, deformity, or tenderness ASSESSMENT/PLAN: 1. HEAVENLY (generalized anxiety disorder) - ICD9: 300.02, ICD10: F41.1 (primary diagnosis) - LORAZEPAM 1 MG TABLET 2. Obesity, Class III, BMI 40-49.9 (morbid obesity) (HCC) - ICD9: 278.01, ICD10: E66.01 3. Bipolar 1 disorder (HCC) - ICD9: 296.7, ICD10: F31.9 Cont meds, close monitoring 4. Moderate episode of recurrent major depressive disorder (HCC) - ICD9: 296.32, ICD10: F33.1 Dimitris Samano MD Referring Provider: SELF [200] Allergies As of Date: 05/14/2017 Noted Allergy Reaction DUST 04/30/2005 Comments: Sneezing and stuffy nose Artesia flies [Other] 08/24/2007 7 - Swelling MOSQUITOS 09/07/2007 7 - Swelling POLLEN 04/30/2005 Comments: Sneezing and stuffy nose Date Reviewed: 05/14/2017 Reviewed by: Dimitris Samano - Fully Assessed Reason for Visit: Letter [264] Cmt: Pt needs letter to start accutane Anxiety [9] Cmt: med refilll Primary Visit Diagnosis:HEAVENLY (generalized anxiety disorder) [F41.1] Other Visit Diagnoses:Obesity, Class III, BMI 40-49.9 (morbid obesity) ([facility]) [E66.01] Bipolar 1 disorder ([facility]) [F31.9] Moderate episode of recurrent major depressive disorder ([facility]) [F33.1] Order(s):lamoTRIgine (LAMICTAL) 150 mg tabletTake 1 tablet by mouth once daily.Disp: Rfl: LORazepam (ATIVAN) 1 mg tabletTake 1 tablet by mouth every 6 hours as needed for up to 30 days.Disp: 30 tabletRfl: 2 Prescriptions as of 05/14/2017 Sig: LAMOTRIGINE 150 MG TABLET Take 1 tablet by mouth once d* LORAZEPAM 1 MG TABLET Take 1 tablet by mouth every * DROSPIRENONE-ETHINYL ESTRADIO* Take 1 tablet by mouth once d* HYDROXYZINE HCL 25 MG TABLET AFLURIA QUAD 8591-1090 (PF) 6* FLORAJEN3 ORAL Take by mouth once daily. POLYETHYLENE GLYCOL 3350 17 G* Take 17 g by mouth once daily. NAPROXEN ORAL Take by mouth. PREVACID ORAL Take by mouth. BUPROPION XL 300 MG 24 HR TAB Take 300 mg by mouth once saroj* NALTREXONE 50 MG TABLET Take 50 mg by mouth once edilberto* MULTIVITAMIN CHEWABLE TABLET Take one(1) tablet daily. Medication notes this encounter HYDROXYZINE HCL 25 MG TABLET >> Susan Salcedo Ma 05/14/2017 11:18 AM >> SUSAN SALCEDO MA Teresa May 14, 2017 11:18 AM PRN FLORAJEN3 ORAL >> Susan Salcedo Ma 05/14/2017 11:18 AM >> SUSAN SALCEDO MA Teresa May 14, 2017 11:18 AM Occasionally COMPOUNDED PRESCRIPTION >> Susan Salcedo Ma 05/14/2017 11:17 AM >> SUSAN SALCEDO MA May 14, 2017 11:17 AM Not taking Problem List As Of Date 05/14/2017 Noted Resolved Ingrowing nail [L60.0] INVALID FOR*07/23/2011 Cellulitis and abscess of toe, unspecified [L03*INVALID FOR*07/23/2011 Acne [L70.9] INVALID FOR* Obesity, Class III, BMI >= 40 E66.01 [E66.01] INVALID FOR* Bipolar 1 disorder (HCC) [F31.9] INVALID FOR* Body mass index (BMI) 45.0-49.9, adult (HCC) [Z*INVALID FOR* Moderate episode of recurrent major depressive *INVALID FOR* Prescriptions ordered this encounter Disp Refills Start End LAMOTRIGINE 150 MG TABLET 05/14/2017 Class: Med Update Route: ORAL Sig: Take 1 tablet by mouth once daily. LORAZEPAM 1 MG TABLET 30 t* 2 05/14/2017 06/13/2017 Class: Print RX Route: ORAL Sig: Take 1 tablet by mouth every 6 hours as needed for up to 30 days. Medications Discontinued During This Encounter COMPOUNDED PRESCRIPTION 1 De* 0 01/22/2017 05/14/2017 Class: Print RX Sig: Powerstep original full length (M72.2) Plantar fasciitis of right foot (primary encounter diagnosis) (I87.2) Venous (peripheral) insufficiency Disc: Reason for discontinue is not on file. lamoTRIgine (LAMICTAL) 100 mg tablet 05/14/2017 Class: Historical Med Route: ORAL Sig: Take 100 mg by mouth once daily. Disc: Reason for discontinue is not on file. LORazepam (ATIVAN) 1 mg tablet 05/14/2017 Class: Historical Med Route: ORAL Sig: Take 1 mg by mouth every 6 hours as needed. Disc: Reason for discontinue is not on file. Disposition: Return in about 2 months (around 07/14/2017). Follow-up and Disposition History Recorded Letter Text . [facility] Dimitris Samano MD [address] [place], [place] [id number] May 14, 2017 Tata Sage [address] [facility] [address] To Whom It May Concern, This letter is to state that Tata has been under my care for Bipolar Disorder and currently her symptoms are well controlled with medications. She is cleared to start Accutane and we will monitor her mood disorder along with your treatment. If you have any questions please feel free to contact my office. Sincerely, Dimitris Samano MD Encounter Status:Closed by DIMITRIS SAMANO MD on 05/14/17 GC/CHLAMYDIA AMPLIF Collected: 04/03/2017 Status: F Source: [place] 11:23 AM [facility] REPOSITORY TYPE CODE TESTS RESULT OUT OF REFERENCE UNITS RANGE LAB GCCTSR GC/Chlam Amp [facility]ervix Source LAB GCAMPL GC Negative Amplification for Neisseria gonorrhoeae by amplification. LAB CLAMPL Chlamydia Negative Amplif for Chlamydia trachomatis by amplification. Performed By: #### GCCT #### [facility] [address] [place], [place] [address] CYTOLOGY Observed: 04/03/2017 Status: C Source: [place] 11:23 [facility] REPOSITORY ADDITIONAL PROCEDURES PRESENT ---Abnormal Pap Test - Epithelial Cell Abnormality--- Specimen originated from [facility] Specimen #: [id number] Submitting Physician: BLAKE KERN MD SPECIMEN SUBMITTED A: CERVICAL, SCREENING, FLUID FINAL DIAGNOSIS A. CERVICAL, SCREENING, FLUID Satisfactory for interpretation. Epithelial cell abnormality. Atypical squamous cells of undetermined significance (ASC-US). This specimen has been analyzed by the ThinPrep Imaging System, an automated imaging and review system, which assists the laboratory in evaluating cells on ThinPrep Pap tests. Following automated imaging, selected dubois from every slide are reviewed by a manager building. Rick Todd MD (Electronic Signature) ADDITIONAL PROCEDURE(S) HUMAN PAPILLOMA VIRUS Date Ordered: 04/15/2017 Date Reported: 04/17/2017 Procedure Results and Interpretation Negative for HPV DNA high risk type 16 by PCR. Negative for HPV DNA high risk type 18 by PCR. Negative for HPV DNA high risk types: 31,33,35,39,45,51,52,56,58,59,66,68 by PCR. This test was developed and its performance characteristics determined by [facility] [place] ([facility]). It has not been cleared or approved by the FDA. -[facility] is regulated under CLIA as qualified to perform high-complexity testing. This test is used for clinical purposes. It should not be regarded as investigational or for research. CLINICAL DATA ROUTINE EXAM, HPV Testing: Yes, Reflex HPV for ASCUS Date of Last Menstrual Period: None Additional Testing: Reflex HPV testing for ASCUS STAINS A: CERVICAL, SCREENING, FLUID THIN PREP ECHOCARDIOGRAPHY TECH Date of Report: 04/15/2017 Date of Procedure: 04/03/2017 Date of Receipt: 04/06/2017 Submitted by: BLAKE KERN MD Location: [facility] Diagnostic interpretation performed at [facility], [address] [place] [address]. The Pap Smear is a screening test for cervical cancer. False negative results occur with all screening tests, emphasizing the need for rescreening at recommended intervals, and clinical correlation. HPV W/GENOTYPE Collected: 04/03/2017 Status: F Source: [place] 11:23 AM [facility] REPOSITORY TYPE CODE TESTS RESULT OUT OF REFERENCE UNITS RANGE LAB HPVT16 HPV HighRisk Negative for Type 16 HPV DNA high risk type 16 by PCR. LAB HPVT18 HPV HighRisk Negative for Type 18 HPV DNA high risk type 18 by PCR. LAB HPVHRO HPV HighRisk Negative for Other HPV DNA high risk types: 31,33,35,39,45 ,51,52,56,58,5 9,66,68 by PCR. Result Comment: This test was developed and its performance characteristics determined by [facility]'s [employer] [employer] [facility] [place] ([facility]). It has not been cleared or approved by the FDA. [facility] is regulated under CLIA as qualified to perform high-complexity testing. This test is used for clinical purposes. It should not be regarded as inv estigational or for research. Performed By: #### HPVHRR #### [facility] [address] [place], [place] [address] PROGRESS Observed: 04/03/2017 Status: COMPLETED Source: [place] 11:03 AM [facility] REPOSITORY HNO ID: [id number] Author: Blake Kern Service: (none) Author Type: Physician Type: Progress Notes Filed: 04/03/2017 11:48 AM Note Text: Tata Sage is a 21 year old who presents for her annual gynecologic exam. She reports worsened acne AND is frustrated with this. Menses: spotting monthly at menses time. Contraception: oral contraceptives HPV vaccine: Yes Obstetric History T0 L0 SAB0 TAB0 Ectopic0 Multiple0 Live Births0 PAST MEDICAL HISTORY Diagnosis Date - PMH - PAST MEDICAL HISTORY OF Color Vision - Normal - Shingles 07/2014 PAST SURGICAL HISTORY Procedure Laterality Date - NEXPLANON INSERTION 09/14/2014 - PAST SURGICAL HISTORY OF adenoids - PAST SURGICAL HISTORY OF ingrown toenail, several taken out - PAST SURGICAL HISTORY OF 12/18/2016 implant removed from arm FAMILY HISTORY Problem Relation Age of Onset - Hypertension Mother Maternal side - Heart Father [place] - Cancer Maternal Grandmother Lung cancer, smoker/Uterine cancer - Hypertension Maternal Grandmother - Colon Cancer Paternal Grandmother - Other [OTHER] Paternal Grandmother No breast/ovarian/colon cancer/MGM - cervical vs uterine cancer age 27 SOCIAL HISTORY Social History Substance Use Topics - Smoking status: Former Smoker Years: 5.00 Quit date: 03/20/2014 - Smokeless tobacco: Never Used - Alcohol use No REVIEW OF SYSTEMS Abdomen: No abdominal pain, nausea, vomiting, diarrhea, or constipation. No bloating, early satiety, indigestion, or increased flatulence. Bladder: No dysuria, gross hematuria, urinary frequency, urinary urgency, or incontinence. Breast: No breast lumps, nipple d/c, overlying skin changes, redness or skin retraction. Allergies and current medication updated:Yes EXAM: There were no vitals taken for this visit. GENERAL: pleasant, female in no apparent distress BREAST: soft, non-tender, symmetric, no dominant mass, normal nipple-areolar complex, no lymphadenopathy and no nipple discharge CHEST: Normal inspiratory effort ABDOMEN: soft, non-tender and no masses PELVIC: external genitalia normal, normal Bartholin's glands, urethra, Bodega's glands, no vulvar lesions, no cervical lesions, good vaginal support, physiologic discharge present, normal appearing perineal body and perianal region BIMANUAL: uterus normal size, shape and consistency, no adnexal masses and non-tender RECTOVAGINAL: deferred. NEURO: alert and oriented x3,exam grossly non-focal EXTREMITIES: normal ASSESSMENT/PLAN: 1) Health maintenance: Pap done with reflex HPV. Nutrition, exercise and routine health maintenance exams reviewed. 2) Contraception: oral contraceptives . Contraceptive options reviewed and information provided - she declines IUD. Initial BP was elevated but patient was running later AND stuck behind accident. True BP done AND all BP's normal. Advised patient to check BP at least weekly (works at [employer]) and call with BP >140/90. She is aware of increased CV/stroke risks if BP elevated. 3) STD screening: Accepted STD check for Gonorrhea and Chlamydia. 4) Follow up one year or sooner as needed 5) Acne - recommend dermatology evaluation Blake Kern MD CNOV Observed: 04/03/2017 Status: COMPLETED Source: [place] 10:50 AM [facility] REPOSITORY Office Visit (WOOB) TATA SAGE ([id number]) 1995 F Date Time Provider Department 04/03/17 10:50 AM BLAKE KERN During your visit today, we recorded the following information about you: Blood pressure Weight Height 122/82 132 kg 1.74 m Blake Kern MD 04/03/2017 11:48 AM Signed Tata Sage is a 21 year old who presents for her annual gynecologic exam. She reports worsened acne ANDamp; is frustrated with this. Menses: spotting monthly at menses time. Contraception: oral contraceptives HPV vaccine: Yes Obstetric History T0 L0 SAB0 TAB0 Ectopic0 Multiple0 Live Births0 PAST MEDICAL HISTORY Diagnosis Date - PMH - PAST MEDICAL HISTORY OF Color Vision - Normal - Shingles 07/2014 PAST SURGICAL HISTORY Procedure Laterality Date - NEXPLANON INSERTION 09/14/2014 - PAST SURGICAL HISTORY OF adenoids - PAST SURGICAL HISTORY OF ingrown toenail, several taken out - PAST SURGICAL HISTORY OF 12/18/2016 implant removed from arm FAMILY HISTORY Problem Relation Age of Onset - Hypertension Mother Maternal side - Heart Father [place] - Cancer Maternal Grandmother Lung cancer, smoker/Uterine cancer - Hypertension Maternal Grandmother - Colon Cancer Paternal Grandmother - Other [OTHER] Paternal Grandmother No breast/ovarian/colon cancer/MGM - cervical vs uterine cancer age 27 SOCIAL HISTORY Social History Substance Use Topics - Smoking status: Former Smoker Years: 5.00 Quit date: 03/20/2014 - Smokeless tobacco: Never Used - Alcohol use No REVIEW OF SYSTEMS Abdomen: No abdominal pain, nausea, vomiting, diarrhea, or constipation. No bloating, early satiety, indigestion, or increased flatulence. Bladder: No dysuria, gross hematuria, urinary frequency, urinary urgency, or incontinence. Breast: No breast lumps, nipple d/c, overlying skin changes, redness or skin retraction. Allergies and current medication updated:Yes EXAM: There were no vitals taken for this visit. GENERAL: pleasant, female in no apparent distress BREAST: soft, non-tender, symmetric, no dominant mass, normal nipple-areolar complex, no lymphadenopathy and no nipple discharge CHEST: Normal inspiratory effort ABDOMEN: soft, non-tender and no masses PELVIC: external genitalia normal, normal Bartholin's glands, urethra, Bodega's glands, no vulvar lesions, no cervical lesions, good vaginal support, physiologic discharge present, normal appearing perineal body and perianal region BIMANUAL: uterus normal size, shape and consistency, no adnexal masses and non-tender RECTOVAGINAL: deferred. NEURO: alert and oriented x3,exam grossly non-focal EXTREMITIES: normal ASSESSMENT/PLAN: 1) Health maintenance: Pap done with reflex HPV. Nutrition, exercise and routine health maintenance exams reviewed. 2) Contraception: oral contraceptives . Contraceptive options reviewed and information provided - she declines IUD. Initial BP was elevated but patient was running later ANDamp; stuck behind accident. True BP done ANDamp; all BP's normal. Advised patient to check BP at least weekly (works at [employer]) and call with BP ANDgt;140/90. She is aware of increased CV/stroke risks if BP elevated. 3) STD screening: Accepted STD check for Gonorrhea and Chlamydia. 4) Follow up one year or sooner as needed 5) Acne - recommend dermatology evaluation Blake Kern MD Referring Provider: ESCOBAR [place] [[id number]] Allergies As of Date: 04/03/2017 Noted Allergy Reaction DUST 04/30/2005 Comments: Sneezing and stuffy nose [place]ia flies [Other] 08/24/2007 7 - Swelling MOSQUITOS 09/07/2007 7 - Swelling POLLEN 04/30/2005 Comments: Sneezing and stuffy nose Date Reviewed: 04/03/2017 Reviewed by: Blake Kern - Fully Assessed Reason for Visit: Yearly Exam [187] Primary Visit Diagnosis:Encounter for gynecological examination without abnormal finding [Z01.419] Other Visit Diagnoses:Screening for malignant neoplasm of cervix [Z12.4] Screen for STD (sexually transmitted disease) [Z11.3] Order(s):PAP FLUID CERVICAL SCREENING [[id number]] Order #: [id number] GC/CHLAMYDIA DNA DET [SQGCCAMP] Order #: [id number] Drospirenone-Ethinyl Estradiol (NISREEN, 28,) 3-0.02 mg per tabletTake 1 tablet by mouth once daily.Disp: 3 PackageRfl: 5 Prescriptions as of 04/03/2017 Sig: DROSPIRENONE-ETHINYL ESTRADIO* Take 1 tablet by mouth once d* HYDROXYZINE HCL 25 MG TABLET AFLURIA QUAD 1606-3079 (PF) 6* FLORAJEN3 ORAL Take by mouth once daily. POLYETHYLENE GLYCOL 3350 17 G* Take 17 g by mouth once daily. COMPOUNDED PRESCRIPTION Powerstep original full lengt* NAPROXEN ORAL Take by mouth. PREVACID ORAL Take by mouth. LORAZEPAM 1 MG TABLET Take 1 mg by mouth every 6 ho* LAMOTRIGINE 100 MG TABLET Take 100 mg by mouth once saroj* BUPROPION XL 300 MG 24 HR TAB Take 300 mg by mouth once saroj* NALTREXONE 50 MG TABLET Take 50 mg by mouth once edilberto* MULTIVITAMIN CHEWABLE TABLET Take one(1) tablet daily. Medication notes this encounter COMPOUNDED PRESCRIPTION >> Angela Wilkinson Ma 04/03/2017 11:08 AM >> ANGELA WILKINSON MA Apr 03, 2017 11:08 AM Not taking Problem List As Of Date 04/03/2017 Noted Resolved Ingrowing nail [L60.0] INVALID FOR*07/23/2011 Cellulitis and abscess of toe, unspecified [L03*INVALID FOR*07/23/2011 Acne [L70.9] INVALID FOR* Prescriptions ordered this encounter Disp Refills Start End DROSPIRENONE-ETHINYL ESTRADIOL 3 MG-* 3 Pa* 5 04/03/2017 Route: ORAL Sig: Take 1 tablet by mouth once daily. Medications Discontinued During This Encounter Drospirenone-Ethinyl Estradiol (NISREEN,* 1 Pa* 12 12/18/2016 04/03/2017 Route: ORAL Sig: Take 1 tablet by mouth once daily. Disc: Reason for discontinue is not on file. Disposition: Return in about 1 year (around 04/03/2018) for Routine ECHOCARDIOGRAPHY TECH exam. Follow-up and Disposition History Recorded Encounter Status:Closed by BLAKE KERN MD on 04/03/17 ALLERGIES ALLERGIES DATE TYPE / CODE NAME / CODE REACTION SEVERITY SOURCE 02/17/2018 Drug No Known Unknown [place] Allergy/879910281(S Allergies/F0019 [facility]) 82970(RXNORM) Hospital Repository 09/07/2007 Environ/494749216(S MOSQUITOS SWELLING [facility]) [facility] Main [place] Repository 08/24/2007 Miscellaneous OTHER SWELLING [place] Allergy/853948956(S Clinic Main NOMED [facility]) [place] Repository 04/30/2005 Environ/281184169(S DUST [place] [facility]) Clinic Main [place] Repository 04/30/2005 Environ/025748702(S POLLEN [place] NOM[facility]) Clinic Main [place] Repository NG/[id number](SNOMED OTHER [facility]) [facility] Repository NG/391537631(SNOMED DUST [facility]) [facility] Repository NG/[id number](SNOMED MOSQUITOS [facility]) [facility] System Repository NG/651822700(SNOMED POLLEN [facility]) Health System Repository ENCOUNTERS ENCOUNTERS ADMIT/DISCHARGE ACCOUNT NUMBER ADMITTING ENCOUNTER LOCATION SOURCE CLASS 02/23/2018/02/24/20 [id number] Ambulatory [address] Repository 02/17/2018/02/19/20 [id number] Emergency [address] ding:ED Repository 12/16/2017/12/17/[id number] Repository 11/12/2017/11/18/[id number] Repository 09/15/2017 [id number] [facility] ding:MTLAB Repository 09/07/2017 [id number] Ambulatory [facility] [place] Repository 09/07/2017/09/08/19 [id number] Ambulatory [address] MEDICAL Repository CENTERBuildi ng:AKLB 08/11/2017 [id number] [facility] ding:MTLAB Repository 07/31/2017/08/06/[id number] Main [place] Repository 07/14/2017 [id number] Ambulatory [facility] [place] Repository 07/14/2017 [id number] Ambulatory [facility] [place] Repository 07/07/2017/07/08/[id number] Repository 06/29/2017 [id number] [facility] ding:MTLAB Repository 05/27/2017 [id number] [facility] ding:MTLAB Repository 05/14/2017/05/16/19 [id number] Ambulatory [address] Repository 04/03/2017/04/07/19 [id number] Ambulatory [address] Repository PAYERS PAYERS ENCOUNTER GUARANTOR PAYER SUBSCRIBER SOURCE 02/17/2018 TATA Kj Primary OBDULIA P [place] [id number] Insurance:SUMMA CARMENDOB: [facility] CAREPolicy Number: [id number] [id number] Repository [address]Owe: (330) Date:[phone] (HP) [address], [place] [address]MW: 02/17/2018 Secondary NOT GIVENUNK Jaqueline Insurance:SELF PAY [facility] Number: Effective Repository Date:2018-02-17 09/15/2017 TATA Kj Primary OBDULIA P Jaqu[place] [id number] Insurance:SUMMA CARMENDOB: [facility]: [id number] [id number] Repository [address]Btk: (330) Date:3152-89-37YF [phone] (HP) [address], [place] [address]SV: 09/15/2017 Secondary NOT GIVENUNK [place] Insurance:SELF PAY [facility] Number: Effective Repository Date:2017-09-15 08/11/2017 TATA Kj Primary OBDULIA P Jaqu[place] [id number] Insurance:SUMMA CARMENDOB: [facility] CAREPolicy Number: [id number], [place] [id number] Repository [address]Whm: (330) Date:5662-74-47[phone] (HP) [address], [place] [address]ND: 08/11/2017 Secondary NOT GIVENUNK Jaqueline Insurance:SELF PAY [facility] Number: Effective Repository Date:2017-08-11 06/29/2017 TATA [place] Primary OBDULIA P Jaqueline [id number] Insurance:SUMMA CARMENDOB: [facility] Number: [id number] [id number] Repository [address]Nmh: (330) Date:1927-75-03[phone] () [address] [address]AL: 06/29/2017 Secondary NOT GIVENUNK Jaqueline Insurance:SELF PAY [facility]: Effective Repository Date:2017-06-29 05/27/2017 TATA FUCHS Primary OBDULIA P Jaqueline [id number] Insurance:AMEENAA ADDISONB: [facility] Number: [id number] [id number] Repository [address]Fiu: (330) Date:5988-95-66WH [phone] () [address] [address]EV: 05/27/2017 Secondary NOT GIVENUNK [place] Insurance:SELF PAY [facility] Number: Effective Repository Date:2017-05-27
== END 2018-02-18 00:16 | disposition home or self-care (01) ==
PROVIDERS: Emergency Provider Emergency Medicine; Family Provider Family Medicine; PCP Family Medicine
DX: R10.13 Epigastric pain (principal)
CPT/HCPCS: 71275; 76705; 80053; 83690; 84703; 85025; 85379; 96361; 96374; 96375; 99284; J7030; Q9967; A4216; J2405